=== PATIENT | male | born 1940 | race Caucasian/White ===

== ENCOUNTER 2020-06-22 22:44 | Inpatient (IN) | payer MEDICARE, OTHER ==
[~2020-06-22] VITALS: Ht 172.7 cm; Wt 104.8 kg
[2020-06-22 23:01] LABS: BASOPHILS # (AUTO) 0.1 /CMM (0.0-0.2); BASOPHILS % (AUTO) 1.2 % (0.0-2.0); EOSINOPHILS % (AUTO) 5.9 % (0.0-6.0); HEMATOCRIT 35 % (39-51); HEMOGLOBIN 11.6 g/dL (13.5-17.5); LYMPHOCYTES # (AUTO) 1.8 /CMM (0.8-4.8); LYMPHOCYTES % (AUTO) 29.3 % (20.0-44.0); MEAN CORPUSCULAR HGB CONC 33 g/dl (31.0-36.0); MEAN CORPUSCULAR VOLUME 88 fL (80-96); MONOCYTES # (AUTO) 0.6 /CMM (0.1-1.30); MONOCYTES % (AUTO) 10.3 % (2.0-12.0); NEUTROPHILS # (AUTO) 3.2 /CMM (1.8-8.9); NEUTROPHILS % (AUTO) 53.3 % (43.0-81.0); PLATELET COUNT (AUTO) 228 /CMM (150-450); RED BLOOD CELL COUNT(AUTO) 3.98 MIL/uL (4.5-6.0)
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
--- NOTE | 2020-06-22 23:18 | NUR ---
PT IS UNABLE TO URINATE AT THIS TIME. OFFERED CATHETERIZATION BUT HE REFUSED. AWARE. WILL COLEECT WHEN THE URGE COMES
[2020-06-22 23:24] LABS: CALCIUM, SERUM 7.8 mg/dL (8.5-10.1); CARBON DIOXIDE 25 mmol/L (21-32); CHLORIDE 101 mmol/L (98-107); CREATININE 1.3 mg/dL (0.6-1.3); GLUCOSE 249 mg/dL (74-106); POTASSIUM 4.2 mmol/L (3.5-5.1); SODIUM SERUM 135 mmol/L (136-145); UREA NITROGEN, BLOOD 16 mg/dL (7-18)
--- NOTE | 2020-06-22 23:24 | NUR ---
URINE COLLECTED AND SENT TO LAB
[2020-06-22 23:31] LABS: ALANINE AMINOTRANSFERASE 21 U/L (12-78); ALBUMIN 2.6 g/dL (3.4-5.0); ALKALINE PHOSPHATASE 139 U/L (46-116); ASPARTATE AMINOTRANSFERASE 11 U/L (15-37); BILIRUBIN,DIRECT 0.1 mg/dL (0.0-0.2); BILIRUBIN,TOTAL 0.2 mg/dL (0.2-1.0)
[2020-06-22 23:34] LABS: ACETAMINOPHEN 0 ug/ml (10-30)
[2020-06-22 23:35] LABS: ALCOHOL, BLOOD < 3 mg/dL (0-0)
[2020-06-22 23:42] LABS: BILIRUBIN,URINE NEGATIVE (NEGATIVE); COLOR,URINE YELLOW (YELLOW); LEUKOCYTE ESTERASE ,URINE TRACE (NEGATIVE); NITRITE, URINE NEGATIVE (NEGATIVE); PH,URINE 5.5 (5.0-8.0); PROTEIN,URINE NEGATIVE (NEGATIVE); UGLUCOSE 100 MG/DL mg/dL (NEGATIVE); UROBILINOGEN,URINE 0.2 EU/dL (0.2)
[2020-06-22 23:56] LABS: BACTERIA,URINE 1+ /HPF (None Seen); MUCUS,URINE Few /LPF (None Seen); RBC,URINE 0-2 /HPF (0-2); SQUAMOUS EPITHELIAL CELL,UR Few /HPF (None Seen); URINE AMORPHOUS URATE Few /HPF (None Seen)
--- NOTE | 2020-06-23 00:10 | NUR ---
CALL FROM LAB. RAPID COVID NEGATIVE.
--- NOTE | 2020-06-23 04:18 | NUR ---
REPORT GIVEN TO DOROTHEA MARTINI FOR MICHELLE
--- NOTE | 2020-06-23 04:20 | NUR ---
Pt to gps via [facility].
[2020-06-23] MEDS ORDERED: ZOLP5TAB2 PO (04:23)
[2020-06-23] MEDS ORDERED: [UNRECOGNIZED DRUG - OTHER] (04:25)
[2020-06-23] MEDS ORDERED: ASPI-1169 PO (04:28)
--- NOTE | 2020-06-23 04:34 | NUR ---
GPS ADMISSION NOTE, RECEIVED PATIENT FROM [facility] PATIENT ARRIVED ON THIS UNIT AT 0434 VIA STRETCHER WITH 2 ESCORTS. PATIENT ADMITTED ON A 5150 HOLD FOR DTO AND GD. PER HOLD PATIENT HAS BEEN BEING INCREASINGLY AGGRESSIVE AND COMBATIVE TOWARDS STAFF AND RESIDENTS. PATIENT IS REFUSING MEALS AND MEDICATION. PATIENT HAS NO PLAN FOR SELF CARE. PATIENT WAS UNABLE TO CONTRACT FOR SAFETY AT THAT TIME.THE 5150 WAS REVIEWED AND THE DOCUMENTATION IN THE 5150 HOLD APPEARS TO REFLECT THE PRESENTATION OF THE PATIENT. UPON FACE TO FACE ASSESSMENT PATIENT IS NOTED TO BEING DEPRESSED, DISHEVELED, DISORGANIZED, COOPERATIVE, AND NEEDS REDIRECTION. PATIENT IS CURRENTLY LYING IN BED AWAKE, HAS NO S/S OR COMPLAINTS OF PAIN. PATIENT IS DISPLAYING NO S/S OF APPARENT DISTRESS. PATIENT BREATHING IS UNLABORED WITH EQUAL RISE AND FALL OF THE CHEST. PATIENT IS ALERT AND ORIENTATED X 3 ON ROOM AIR. PATIENT ASSISTED WITH TURING AND REPOSITIONING Q2HR AND PRN FOR COMFORT AND CIRCULATION. PATIENT HAS NO NEEDS AT THIS TIME. PATIENT DENIES SUICIDE IDEATIONS AND HOMICIDAL IDEATIONS AT THIS TIME. PATIENT REFUSED TO SIGNS ANY PAPER WORK AND THINKS THIS IS ALL A MISTAKE. PATIENT ADVISED OF HIS HOLD AND PATIENT RIGHTS BOOKLET GIVEN. PATIENT IS UNDER THE PSYCHIATRIC CARE OF DR. BLEDSOE AND THE MEDICAL CARE OF DR SNOW. PATIENT BELONGINGS WERE INVENTORIED AND CHECKED FOR CONTRABAND. ALL CONTRABAND REMOVED AND STORED IN PATIENT HALLWAY LOCKER. PATIENT ADVANCED DIRECTIVES PREFERENCE, IMMUNIZATIONS QUESTIONER, NECESSARY PAPERWORK COMPLETED. PATIENT ALLOWED SKIN ASSESSMENT. PATIENT ORIENTATED TO ROOM, FLOOR, AND STAFF WITH ALL QUESTIONS ANSWERED. PATIENT EDUCATED ON THE USE OF THE CALL CARR. PATIENT BED SIDE RAILS ARE UP X 2 FOR SAFETY. PATIENT BED IS LOCKED, LOW AND I WILL CONTINUE TO MONITOR THIS PATIENT Q 15 MIN WITH THE HELP OF STAFF TO MAINTAIN SAFETY.
[2020-06-23] MEDS ORDERED: MAGNESIUM HYDROXIDE 30 ML UDC PO PRN (05:00)
[2020-06-23] MEDS ORDERED: MAG HYDROX/AL HYDROX/SIMETH 30 ML UDC PO PRN (05:00)
[2020-06-23] MEDS ORDERED: ZOLPIDEM TARTRATE 5 MG TABLET PO PRN (05:00)
[2020-06-23] MEDS ORDERED: ACETAMINOPHEN 325 MG TABLET PO PRN (05:00)
[2020-06-23] MEDS ORDERED: BLOOD SUGAR DIAGNOSTIC 1 EACH STRIP IN ONE (05:00)
[2020-06-23] MEDS ORDERED: DOCU100C36 PO (05:02)
[2020-06-23] MEDS ORDERED: TAMS-12 PO (05:03)
[2020-06-23] MEDS ORDERED: GLIP5TAB13 PO (05:04)
[2020-06-23] MEDS ORDERED: INSU100V3 SQ (05:05)
[2020-06-23] MEDS ORDERED: POTA20TA83 PO (05:06)
[2020-06-23] MEDS ORDERED: FURO-145 PO (05:08)
[2020-06-23] MEDS ORDERED: INSU100V7 SQ (05:08)
[2020-06-23] MEDS ORDERED: ATOR10TA PO (05:09)
[2020-06-23] MEDS ORDERED: LISI-768 PO (05:10)
[2020-06-23] MEDS ORDERED: ENOX40DI SQ (05:11)
[2020-06-23] MEDS ORDERED: METO25TA20 PO (05:11)
[2020-06-23] MEDS ORDERED: MULT-754 PO (05:12)
[2020-06-23] MEDS ORDERED: HYDR-4303 PO (05:13)
[2020-06-23] MEDS ORDERED: CLOP75TA15 PO (05:14)
[2020-06-23] MEDS ORDERED: RISP1TAB7 PO (05:15)
[2020-06-23] MEDS ORDERED: TRAZ-182 PO (05:16)
[2020-06-23] MEDS ORDERED: OXCA150T5 PO (05:17)
[2020-06-23 06:27] VITALS: BP 109/54
--- NOTE | 2020-06-23 06:28 | NUR ---
RECEIVED ALERT AND ORIENTED X3 SOFT SPOKEN WILL SMILE WILL GIVE EYE CONTACT APPEARS DEPRESSED / SAD NO BELONGINGS EXCEPT JACKET AND HIS UPPER AND LOWER DENTURES FROM THE ER HE WAS INCONTINENT FROM [place] TO BED UNSTEADY GAIT RESP EVEN AND UNLABORED ON ROOM AIT REASSURED PT THAT NURSE MAKES ROUNDS Q15 - 30 MINUTES TO CHECK ON HIM SIDE RAILS UP FOR SAFETY
[2020-06-23] MEDS ORDERED: DEXTROSE 50%-WATER 50 ML DISP.SYRIN IV PRN ×2 (07:00→12:30)
[2020-06-23] MEDS ORDERED: INSULIN REGULAR, HUMAN 100 UNIT/ML 3 ML VIAL SQ PRN (07:00)
[2020-06-23 08:00] VITALS: BP 128/65
[2020-06-23] MEDS: BLOOD SUGAR DIAGNOSTIC 1 EACH STRIP IN SCH ×2 (08:09→12:03)
[2020-06-23] MEDS: INSULIN REGULAR, HUMAN 100 UNIT/ML 3 ML VIAL SQ PRN ×2 (12:38→18:22)
[2020-06-23] MEDS: LORAZEPAM 1 MG TABLET PO PRN (13:16)
--- NOTE | 2020-06-23 13:21 | NUR ---
given ativan for agitation.
[2020-06-23] MEDS: ENOXAPARIN SODIUM 40 MG/0.4 ML DISP.SYRIN SQ SCH (14:49)
[2020-06-23 16:00] VITALS: BP 157/74
--- NOTE | 2020-06-23 16:32 | NUR ---
insisting on family being called.rn called [facility]. requesting clothes be brought in. is located 2 hrs away and will not be bringing clothes today. instructed what type of clothes allowed and to bring them to front lobby.
[2020-06-23] MEDS: BLOOD SUGAR DIAGNOSTIC 1 EACH STRIP VI SCH ×2 (18:02→22:27)
[2020-06-23] MEDS: risperiDONE 1 MG TABLET PO SCH (18:02)
[2020-06-23] MEDS: OXCARBAZEPINE 150 MG TABLET PO SCH (18:03)
[2020-06-23 20:08] VITALS: BP 125/56
[2020-06-23 20:21] VITALS: BP 125/56
[2020-06-23] MEDS: METOPROLOL TARTRATE 50 MG TABLET PO SCH (21:00)
[2020-06-23] MEDS: CEPHALEXIN MONOHYDRATE 500 MG CAPSULE PO SCH (21:08)
[2020-06-23] MEDS: TAMSULOSIN 0.4 MG CAP.SR.24H PO SCH (21:31)
[2020-06-23] MEDS: TRAZODONE 50 MG TABLET PO SCH (21:31)
[2020-06-23] MEDS: ATORVASTATIN 10 MG TABLET PO SCH (21:31)
--- NOTE | 2020-06-23 21:49 | NUR ---
RN NOTE: HELD LOPRESSOR PATIENT'S BP IS 119/58, 62, HELD LOPRESSOR 50 MG PO SCHEDULED. PATIENT AMBULATORY WITH STAND BY ASSIST TO PREVENT FALL. PT. USED THE BATHROOM WITH STAND BY ASSIST, WILL CONTINUE TO MONITOR FOR ANY MICHELLE.
[2020-06-23] MEDS: *INSULIN REGULAR(HUMULIN R)HUM 100 UNIT/ML VIAL SQ PRN (22:48)
[2020-06-24 06:26] LABS: CALCIUM, SERUM 8.5 mg/dL (8.5-10.1); CREATININE 0.9 mg/dL (0.6-1.3)
[2020-06-24 06:28] LABS: BASOPHILS # (AUTO) 0.1 /CMM (0.0-0.2); BASOPHILS % (AUTO) 1.3 % (0.0-2.0); EOSINOPHILS % (AUTO) 7.7 % (0.0-6.0); HEMATOCRIT 38 % (39-51); HEMOGLOBIN 12.8 g/dL (13.5-17.5); LYMPHOCYTES # (AUTO) 1.3 /CMM (0.8-4.8); LYMPHOCYTES % (AUTO) 27.4 % (20.0-44.0); MEAN CORPUSCULAR HGB CONC 33 g/dl (31.0-36.0); MEAN CORPUSCULAR VOLUME 86 fL (80-96); MONOCYTES # (AUTO) 0.5 /CMM (0.1-1.30); MONOCYTES % (AUTO) 10.5 % (2.0-12.0); NEUTROPHILS # (AUTO) 2.5 /CMM (1.8-8.9); NEUTROPHILS % (AUTO) 53.1 % (43.0-81.0); PLATELET COUNT (AUTO) 230 /CMM (150-450); RED BLOOD CELL COUNT(AUTO) 4.49 MIL/uL (4.5-6.0); WHITE BLOOD COUNT (AUTO) 4.7 K/uL (4.3-11.0)
[2020-06-24 08:00] VITALS: BP 135/58
[2020-06-24] MEDS ORDERED: PETR113O TP (08:59)
[2020-06-24] MEDS ORDERED: ACET-868 PO (08:59)
[2020-06-24] MEDS ORDERED: DIPH14SO3 TP (08:59)
[2020-06-24] MEDS ORDERED: NYST15PO4 TP (08:59)
[2020-06-24] MEDS ORDERED: BISA10SU11 RC (08:59)
[2020-06-24] MEDS ORDERED: PSYL3.4P6 PO (08:59)
[2020-06-24] MEDS ORDERED: MAGN400O6 PO (08:59)
[2020-06-24] MEDS ORDERED: MAG30ORA PO (08:59)
[2020-06-24] MEDS ORDERED: ONDA4TAB5 PO (08:59)
[2020-06-24] MEDS ORDERED: NA P133E RC (08:59)
[2020-06-24] MEDS ORDERED: INSULIN GLARGINE, 100 UNIT/ML CARTRIDGE SQ SCH ×2 (09:00)
[2020-06-24] MEDS: FUROSEMIDE 20 MG TABLET PO SCH (09:19)
[2020-06-24] MEDS: POTASSIUM CHLORIDE 20 MEQ TAB.PRT.SR PO SCH (09:19)
[2020-06-24] MEDS: risperiDONE 1 MG TABLET PO SCH ×2 (09:19→17:32)
[2020-06-24] MEDS: OXCARBAZEPINE 150 MG TABLET PO SCH ×3 (09:19→17:32)
[2020-06-24] MEDS: CEPHALEXIN MONOHYDRATE 500 MG CAPSULE PO SCH ×2 (09:19→20:34)
[2020-06-24] MEDS: CLOPIDOGREL BISULFATE 75 MG TABLET PO SCH (09:19)
[2020-06-24] MEDS: ASPIRIN 81 MG TAB.CHEW PO SCH (09:20)
[2020-06-24] MEDS: METOPROLOL TARTRATE 50 MG TABLET PO SCH ×2 (09:20→21:03)
[2020-06-24] MEDS: LISINOPRIL (5MG) 5 MG TABLET PO SCH (09:20)
[2020-06-24] MEDS: MULTIVITAMINS,THERAGRAN 1 UDTAB TABLET PO SCH (09:20)
[2020-06-24] MEDS: BLOOD SUGAR DIAGNOSTIC 1 EACH STRIP VI SCH ×4 (09:21→21:35)
[2020-06-24] MEDS: DOCUSATE SODIUM 100 MG CAPSULE PO SCH (09:21)
[2020-06-24] MEDS: glipiZIDE 5 MG TABLET PO SCH (09:21)
[2020-06-24] MEDS: INSULIN REGULAR, HUMAN 100 UNIT/ML 3 ML VIAL SQ PRN ×2 (09:24→12:38)
[2020-06-24] MEDS: ENOXAPARIN SODIUM 40 MG/0.4 ML DISP.SYRIN SQ SCH (09:25)
[2020-06-24 16:00] VITALS: BP 135/67
[2020-06-24 20:00] VITALS: BP 129/75
[2020-06-24 20:20] VITALS: BP 129/75
[2020-06-24] MEDS: TAMSULOSIN 0.4 MG CAP.SR.24H PO SCH (21:34)
[2020-06-24] MEDS: TRAZODONE 50 MG TABLET PO SCH (21:34)
[2020-06-24] MEDS: ATORVASTATIN 10 MG TABLET PO SCH (21:34)
[2020-06-24] MEDS: *INSULIN REGULAR(HUMULIN R)HUM 100 UNIT/ML VIAL SQ PRN (21:46)
--- NOTE | 2020-06-25 06:42 | NUR ---
RN NOTE PATIENT SLEPT WELL THROUGH OUT THE NIGHT. WILL CONTINUE TO MONITOR.
[2020-06-25 08:00] VITALS: BP 129/78
[2020-06-25] MEDS: ASPIRIN 81 MG TAB.CHEW PO SCH (08:53)
[2020-06-25] MEDS: POTASSIUM CHLORIDE 20 MEQ TAB.PRT.SR PO SCH (08:53)
[2020-06-25] MEDS: CEPHALEXIN MONOHYDRATE 500 MG CAPSULE PO SCH ×2 (08:53→22:30)
[2020-06-25] MEDS: BLOOD SUGAR DIAGNOSTIC 1 EACH STRIP VI SCH ×4 (08:53→22:31)
[2020-06-25] MEDS: FUROSEMIDE 20 MG TABLET PO SCH (08:54)
[2020-06-25] MEDS: CLOPIDOGREL BISULFATE 75 MG TABLET PO SCH (08:54)
[2020-06-25] MEDS: DOCUSATE SODIUM 100 MG CAPSULE PO SCH (08:54)
[2020-06-25] MEDS: glipiZIDE 5 MG TABLET PO SCH (08:54)
[2020-06-25] MEDS: LISINOPRIL (5MG) 5 MG TABLET PO SCH (08:54)
[2020-06-25] MEDS: risperiDONE 1 MG TABLET PO SCH ×2 (08:55→16:49)
[2020-06-25] MEDS: METOPROLOL TARTRATE 50 MG TABLET PO SCH ×2 (08:55→22:31)
[2020-06-25] MEDS: OXCARBAZEPINE 150 MG TABLET PO SCH ×3 (09:00→16:50)
[2020-06-25] MEDS: MULTIVITAMINS,THERAGRAN 1 UDTAB TABLET PO SCH (09:00)
[2020-06-25] MEDS: INSULIN GLARGINE, 100 UNIT/ML CARTRIDGE SQ SCH (09:03)
[2020-06-25] MEDS: ENOXAPARIN SODIUM 40 MG/0.4 ML DISP.SYRIN SQ SCH (09:07)
[2020-06-25] MEDS: MUPIROCIN OINT 2% 22 GM TUBE NS SCH ×2 (09:08→22:39)
--- NOTE | 2020-06-25 11:07 | NUR ---
WOUND CARE CONSULT: PT SEEN FOR SKIN ASSESSMENT AND NOTED TO HAVE RASH TO GROIN FOLDS/PERINEAL AREA, CRUSTED AREAS TO RT LOWER LEG AND PEELING SKIN TO RT HEEL, ALL PRESENT ON ADMISSION. RECOMMEND DPM CONSULT. DR BETHEA NOTIFIED OF CONSULT REQUEST. RECOMMENDATIONS MADE FOR SKIN PROTECTION. DISCUSSED WITH NURSING STAFF. MD IN AGREEMENT WITH PLAN OF CARE.
[2020-06-25] MEDS ORDERED: Z GUARD REMEDY 2 OZ OINT TP PRN (11:30)
[2020-06-25] MEDS: INSULIN REGULAR, HUMAN 100 UNIT/ML 3 ML VIAL SQ PRN (12:33)
[2020-06-25] MEDS: Z GUARD REMEDY 2 OZ OINT TP SCH (12:37)
[2020-06-25 16:00] VITALS: BP 125/66
[2020-06-25] MEDS: CLOTRIMAZOLE 1% 15 GM TUBE TP SCH (16:49)
[2020-06-25] MEDS: AMMONIUM LACTATE 227 GM BOTTLE TP SCH (19:12)
[2020-06-25 20:00] VITALS: BP 125/64
--- NOTE | 2020-06-25 20:00 | NUR ---
[facility]PS RN NOTE: RECEIVED PT AMBULATING HALLWAY AND RESTING IN BED, A&O X 2, CONFUSED & FORGETFUL, DISORGANIZED, NEEDS REDIRECTIONS FREQUENTLY. DENIES SI/HI AT THIS TIME. NO ACUTE DISTRESS NOTED, NO C/O PAIN VERBALZIZED. SAFETY MEASURS IN PLACE. FALL RISK PT CURRENTLY AMBULATING WITH SLOW STEADY GAIT. BED IN LOW LOCKED POSITION. WILL CONTINUE TO MONITOR. Q 15 MINUTES FOR SAFETY, MOOD AND BEHAVIOR.
[2020-06-25] MEDS: *INSULIN REGULAR(HUMULIN R)HUM 100 UNIT/ML VIAL SQ PRN (22:27)
[2020-06-25] MEDS: ATORVASTATIN 10 MG TABLET PO SCH (22:30)
[2020-06-25] MEDS: TRAZODONE 50 MG TABLET PO SCH (22:30)
[2020-06-25] MEDS: TAMSULOSIN 0.4 MG CAP.SR.24H PO SCH (22:30)
[2020-06-26 08:00] VITALS: BP 111/59
--- NOTE | 2020-06-26 08:45 | NUR ---
BP-111/59, p-65, will hold bp med.
[2020-06-26] MEDS: BLOOD SUGAR DIAGNOSTIC 1 EACH STRIP VI SCH ×4 (08:47→21:28)
[2020-06-26] MEDS: MUPIROCIN OINT 2% 22 GM TUBE NS SCH ×2 (08:48→21:13)
[2020-06-26] MEDS: AMMONIUM LACTATE 227 GM BOTTLE TP SCH ×2 (08:48→17:43)
[2020-06-26] MEDS: CEPHALEXIN MONOHYDRATE 500 MG CAPSULE PO SCH ×2 (08:49→21:09)
[2020-06-26] MEDS: glipiZIDE 5 MG TABLET PO SCH (08:49)
[2020-06-26] MEDS: ASPIRIN 81 MG TAB.CHEW PO SCH (08:49)
[2020-06-26] MEDS: DOCUSATE SODIUM 100 MG CAPSULE PO SCH (08:49)
[2020-06-26] MEDS: MULTIVITAMINS,THERAGRAN 1 UDTAB TABLET PO SCH (08:49)
[2020-06-26] MEDS: OXCARBAZEPINE 150 MG TABLET PO SCH ×3 (08:49→17:43)
[2020-06-26] MEDS: METOPROLOL TARTRATE 50 MG TABLET PO SCH ×2 (08:50→21:09)
[2020-06-26] MEDS: risperiDONE 1 MG TABLET PO SCH ×2 (08:50→17:43)
[2020-06-26] MEDS: POTASSIUM CHLORIDE 20 MEQ TAB.PRT.SR PO SCH (08:50)
[2020-06-26] MEDS: CLOPIDOGREL BISULFATE 75 MG TABLET PO SCH (08:50)
[2020-06-26] MEDS: FUROSEMIDE 20 MG TABLET PO SCH (08:50)
[2020-06-26] MEDS: LISINOPRIL (5MG) 5 MG TABLET PO SCH (08:50)
[2020-06-26] MEDS: CLOTRIMAZOLE 1% 15 GM TUBE TP SCH ×2 (08:51→17:44)
[2020-06-26] MEDS: INSULIN GLARGINE, 100 UNIT/ML CARTRIDGE SQ SCH (08:56)
[2020-06-26] MEDS: ENOXAPARIN SODIUM 40 MG/0.4 ML DISP.SYRIN SQ SCH (08:57)
[2020-06-26] MEDS: Z GUARD REMEDY 2 OZ OINT TP SCH (09:05)
--- NOTE | 2020-06-26 11:54 | NUR ---
SNF Contact: BABATUNDE contacted Chiara ([phone]) from [facility] who stated that she will speak to the DON about whether or not the pt will be accepted back.
--- NOTE | 2020-06-26 11:58 | NUR ---
Family Contact: BABATUNDE called the pts , Ethel ([phone]), who stated that she wants the pt to return to [facility] because they are equipped to manage dementia. She then stated that the pt would need to get his vaccine so that he does not have to be isolated when he first arrives at the SNF. SW stated that he would need to get the vaccine from the SNF. BABATUNDE stated that she will keep her updated on pts treatment.
[2020-06-26] MEDS: INSULIN REGULAR, HUMAN 100 UNIT/ML 3 ML VIAL SQ PRN (12:33)
--- NOTE | 2020-06-26 15:40 | NUR ---
Initial Discharge Plan: Pt currently resides at [facility] located at [address] [place] [id number]; ([phone]). Per pt, he would like to return home. Per Chiara at the facility, pt can return. BABATUNDE will work with the pt and the MD regarding appropriate discharge planning. SW will form a safe and proper plan.
[2020-06-26 16:00] VITALS: BP 123/54
[2020-06-26 20:17] VITALS: BP 131/97
[2020-06-26 20:53] VITALS: BP 131/97
[2020-06-26] MEDS: ATORVASTATIN 10 MG TABLET PO SCH (21:28)
[2020-06-26] MEDS: TAMSULOSIN 0.4 MG CAP.SR.24H PO SCH (21:28)
[2020-06-26] MEDS: TRAZODONE 50 MG TABLET PO SCH (21:37)
[2020-06-26] MEDS: *INSULIN REGULAR(HUMULIN R)HUM 100 UNIT/ML VIAL SQ PRN (22:19)
[2020-06-27] MEDS: LORAZEPAM 1 MG TABLET PO PRN (04:39)
--- NOTE | 2020-06-27 04:43 | NUR ---
RN NOTE: ANXIETY PATIENT NOTED TO BE ANXIOUS, RESTLESS & EASILY AGITATED, KEEPS REPEATING SAME STATEMENT DESPITE OF EXPLANATIONS. PRN ATIVAN 1 MG PO ADMINISTERED. WILL CONTINUE TO MONITOR FOR ANY CHANGES.
[2020-06-27] MEDS: BLOOD SUGAR DIAGNOSTIC 1 EACH STRIP VI SCH ×4 (07:44→21:41)
[2020-06-27 08:00] VITALS: BP 162/76
[2020-06-27] MEDS: INSULIN REGULAR, HUMAN 100 UNIT/ML 3 ML VIAL SQ PRN ×2 (08:00→12:08)
[2020-06-27] MEDS: LISINOPRIL (5MG) 5 MG TABLET PO SCH (08:52)
[2020-06-27] MEDS: ENOXAPARIN SODIUM 40 MG/0.4 ML DISP.SYRIN SQ SCH (08:54)
[2020-06-27] MEDS: POTASSIUM CHLORIDE 20 MEQ TAB.PRT.SR PO SCH (08:54)
[2020-06-27] MEDS: MULTIVITAMINS,THERAGRAN 1 UDTAB TABLET PO SCH (08:54)
[2020-06-27] MEDS: glipiZIDE 5 MG TABLET PO SCH (08:54)
[2020-06-27] MEDS: ASPIRIN 81 MG TAB.CHEW PO SCH (08:54)
[2020-06-27] MEDS: DOCUSATE SODIUM 100 MG CAPSULE PO SCH (08:54)
[2020-06-27] MEDS: risperiDONE 1 MG TABLET PO SCH ×2 (08:55→16:29)
[2020-06-27] MEDS: FUROSEMIDE 20 MG TABLET PO SCH (08:55)
[2020-06-27] MEDS: METOPROLOL TARTRATE 50 MG TABLET PO SCH ×2 (08:55→21:41)
[2020-06-27] MEDS: OXCARBAZEPINE 150 MG TABLET PO SCH ×3 (08:55→16:29)
[2020-06-27] MEDS: CLOPIDOGREL BISULFATE 75 MG TABLET PO SCH (08:55)
[2020-06-27] MEDS: CEPHALEXIN MONOHYDRATE 500 MG CAPSULE PO SCH ×2 (08:55→21:40)
[2020-06-27] MEDS: INSULIN GLARGINE, 100 UNIT/ML CARTRIDGE SQ SCH (09:06)
[2020-06-27] MEDS: MUPIROCIN OINT 2% 22 GM TUBE NS SCH ×2 (09:42→21:45)
[2020-06-27] MEDS: Z GUARD REMEDY 2 OZ OINT TP SCH (09:42)
[2020-06-27] MEDS: AMMONIUM LACTATE 227 GM BOTTLE TP SCH ×2 (09:42→16:35)
[2020-06-27] MEDS: CLOTRIMAZOLE 1% 15 GM TUBE TP SCH ×2 (09:43→16:35)
[2020-06-27 16:00] VITALS: BP 141/73
[2020-06-27 20:02] VITALS: BP 108/51
[2020-06-27] MEDS: ATORVASTATIN 10 MG TABLET PO SCH (21:40)
[2020-06-27] MEDS: TAMSULOSIN 0.4 MG CAP.SR.24H PO SCH (21:40)
[2020-06-27] MEDS: TRAZODONE 50 MG TABLET PO SCH (21:40)
--- NOTE | 2020-06-27 22:00 | NUR ---
BUS GREASER NOTES ROUTINE MEDS GIVEN AND BLOOD SUGAR CHECKED DONE WELL 200, INSULIN GIVEN 3 UNITS DIAMOND SQ ORDERED. NO SIGNS OF HYPO/HYPER GLYCEMIA NOTED. SNACKS ALSO SERVED. PT TOLERATED WELL. WILL CONTINUE MONITORING.
[2020-06-27] MEDS: *INSULIN REGULAR(HUMULIN R)HUM 100 UNIT/ML VIAL SQ PRN (22:29)
--- NOTE | 2020-06-28 06:53 | NUR ---
river pilot notes pt sleeping at this time after morning care done. Stable throughout the night . He's calmed , cooperative and compliance with his medication.He also ate well, no aspiration noted. No behavioral issue to report at this time. All due meds given and all needs met. Kept him warm and comfortable at all times. Blood sugar checked done for 07 am came out 200. endorse to am nurse for continuity of care.
[2020-06-28] MEDS: BLOOD SUGAR DIAGNOSTIC 1 EACH STRIP VI SCH ×4 (07:54→22:25)
[2020-06-28 08:00] VITALS: BP 118/67
[2020-06-28] MEDS: FUROSEMIDE 20 MG TABLET PO SCH (08:21)
[2020-06-28] MEDS: CEPHALEXIN MONOHYDRATE 500 MG CAPSULE PO SCH (08:21)
[2020-06-28] MEDS: ASPIRIN 81 MG TAB.CHEW PO SCH (08:21)
[2020-06-28] MEDS: LISINOPRIL (5MG) 5 MG TABLET PO SCH (08:21)
[2020-06-28] MEDS: glipiZIDE 5 MG TABLET PO SCH (08:21)
[2020-06-28] MEDS: CLOPIDOGREL BISULFATE 75 MG TABLET PO SCH (08:21)
[2020-06-28] MEDS: OXCARBAZEPINE 150 MG TABLET PO SCH ×3 (08:21→17:26)
[2020-06-28] MEDS: POTASSIUM CHLORIDE 20 MEQ TAB.PRT.SR PO SCH (08:21)
[2020-06-28] MEDS: DOCUSATE SODIUM 100 MG CAPSULE PO SCH (08:21)
[2020-06-28] MEDS: MULTIVITAMINS,THERAGRAN 1 UDTAB TABLET PO SCH (08:21)
[2020-06-28] MEDS: risperiDONE 1 MG TABLET PO SCH ×2 (08:21→17:26)
[2020-06-28] MEDS: METOPROLOL TARTRATE 50 MG TABLET PO SCH ×2 (08:22→21:00)
[2020-06-28] MEDS: CLOTRIMAZOLE 1% 15 GM TUBE TP SCH ×2 (08:26→17:30)
[2020-06-28] MEDS: Z GUARD REMEDY 2 OZ OINT TP SCH (08:26)
[2020-06-28] MEDS: AMMONIUM LACTATE 227 GM BOTTLE TP SCH ×2 (08:27→17:29)
[2020-06-28] MEDS: MUPIROCIN OINT 2% 22 GM TUBE NS SCH ×2 (08:30→21:31)
[2020-06-28] MEDS: INSULIN GLARGINE, 100 UNIT/ML CARTRIDGE SQ SCH (08:34)
[2020-06-28] MEDS: ENOXAPARIN SODIUM 40 MG/0.4 ML DISP.SYRIN SQ SCH (08:35)
[2020-06-28] MEDS: INSULIN REGULAR, HUMAN 100 UNIT/ML 3 ML VIAL SQ PRN ×2 (08:36→12:45)
--- NOTE | 2020-06-28 14:00 | NUR ---
SNF Contact: BABATUNDE contacted Chiara ([phone]) from [facility] and informed her that the pt will be discharged back to their facility tomorrow.
--- NOTE | 2020-06-28 14:00 | NUR ---
Family Contact: BABATUNDE called the pts , Ethel ([phone]), and informed her that the pt is going to be discharged back to [facility] the following day.
[2020-06-28 16:00] VITALS: BP 119/53
[2020-06-28 20:23] VITALS: BP 130/71
[2020-06-28] MEDS: *INSULIN REGULAR(HUMULIN R)HUM 100 UNIT/ML VIAL SQ PRN (21:29)
[2020-06-28] MEDS: ATORVASTATIN 10 MG TABLET PO SCH (21:30)
[2020-06-28] MEDS: TAMSULOSIN 0.4 MG CAP.SR.24H PO SCH (21:30)
[2020-06-28] MEDS: TRAZODONE 50 MG TABLET PO SCH (21:31)
[2020-06-29] MEDS: BLOOD SUGAR DIAGNOSTIC 1 EACH STRIP VI SCH ×4 (07:43→22:13)
[2020-06-29] MEDS: INSULIN REGULAR, HUMAN 100 UNIT/ML 3 ML VIAL SQ PRN (07:50)
[2020-06-29 08:00] VITALS: BP 150/66
[2020-06-29] MEDS: OXCARBAZEPINE 150 MG TABLET PO SCH ×3 (08:22→16:14)
[2020-06-29] MEDS: DOCUSATE SODIUM 100 MG CAPSULE PO SCH (08:22)
[2020-06-29] MEDS: CLOPIDOGREL BISULFATE 75 MG TABLET PO SCH (08:22)
[2020-06-29] MEDS: risperiDONE 1 MG TABLET PO SCH ×2 (08:22→16:14)
[2020-06-29] MEDS: FUROSEMIDE 20 MG TABLET PO SCH (08:22)
[2020-06-29] MEDS: ASPIRIN 81 MG TAB.CHEW PO SCH (08:22)
[2020-06-29] MEDS: POTASSIUM CHLORIDE 20 MEQ TAB.PRT.SR PO SCH (08:22)
[2020-06-29] MEDS: glipiZIDE 5 MG TABLET PO SCH (08:22)
[2020-06-29] MEDS: LISINOPRIL (5MG) 5 MG TABLET PO SCH (08:23)
[2020-06-29] MEDS: METOPROLOL TARTRATE 50 MG TABLET PO SCH ×2 (08:23→20:40)
[2020-06-29] MEDS: MULTIVITAMINS,THERAGRAN 1 UDTAB TABLET PO SCH (08:23)
[2020-06-29] MEDS: ENOXAPARIN SODIUM 40 MG/0.4 ML DISP.SYRIN SQ SCH (08:25)
[2020-06-29] MEDS: INSULIN GLARGINE, 100 UNIT/ML CARTRIDGE SQ SCH (08:30)
[2020-06-29] MEDS: AMMONIUM LACTATE 227 GM BOTTLE TP SCH ×2 (08:33→17:05)
[2020-06-29] MEDS: CLOTRIMAZOLE 1% 15 GM TUBE TP SCH ×2 (08:34→17:05)
[2020-06-29] MEDS: Z GUARD REMEDY 2 OZ OINT TP SCH (08:34)
[2020-06-29] MEDS: MUPIROCIN OINT 2% 22 GM TUBE NS SCH ×2 (08:34→20:36)
--- NOTE | 2020-06-29 09:00 | NUR ---
RN NOTE- PT WANTS TO DC, FOCUS ON IT. REPEATED QUESTIONS REGARDING TIME OF DC ETC. REDIRECTED, MED COMPLIANT PO INTAKE GOOD, CALM
--- NOTE | 2020-06-29 09:04 | NUR ---
Dr. Christensen gave an order to D/C hold and D/C to [facility], to continue same meds including and to follow up with psych and medical doctors.
--- NOTE | 2020-06-29 09:21 | NUR ---
Discharge Note: Pt will be discharged to [facility] ([facility]) [place] [address] [place] [address]; ([phone]). Pt will be transported via [facility] at 12pm. Pts , Ethel ([phone]), agreed to this placement. Upon discharge, the pt appears to be in a dysphoric mood and presents with a distressed affect. Pt appears to be oriented x2 (time and self). Pt appears to be groomed and appropriately dressed. Pt appears to be ambulatory with an unsteady gait. Pt denies suicidal and homicidal ideation and denied visual and auditory hallucinations. Pt will continue to follow up with pts psychiatrist, Dr. Christensen, located at [address] [facility] [address] [address]; and pts silver miner blasting, Dr. An, located at [address] [place] [address], [address] [place] [address]; . Pt was not able to sign the Choice of Vendor form due to pts psychosis. RN and SW cosigned and the form was placed in the chart. The multidisciplinary exit care form was done, printed, signed, and given to the patient.
[2020-06-29] MEDS: *INSULIN REGULAR(HUMULIN R)HUM 100 UNIT/ML VIAL SQ PRN ×3 (12:06→22:15)
[2020-06-29] MEDS: LORAZEPAM 1 MG TABLET PO PRN (12:14)
--- NOTE | 2020-06-29 12:14 | NUR ---
RN NOTE- PT EXPERIENCING ANXIETY RESTLESSNESS RELATED TO DC - ATIVAN 1 MG GIVEN
--- NOTE | 2020-06-29 12:31 | NUR ---
Received an order from Dr. Christensen to cancel the discharge. Facility can not accept pt. until Thursday. Electro Tech made aware.
--- NOTE | 2020-06-29 13:01 | NUR ---
Family Contact: BABATUNDE called the pts , Ethel ([phone]), and informed her that the pt is going to be discharged on Thursday instead due to the facility's request.
--- NOTE | 2020-06-29 13:01 | NUR ---
DISCHARGE WAS CANCELLED.
[2020-06-29 16:00] VITALS: BP 119/57
[2020-06-29 20:21] VITALS: BP 127/67
[2020-06-29] MEDS: TRAZODONE 50 MG TABLET PO SCH (21:31)
[2020-06-29] MEDS: TAMSULOSIN 0.4 MG CAP.SR.24H PO SCH (21:32)
[2020-06-29] MEDS: ATORVASTATIN 10 MG TABLET PO SCH (21:34)
[2020-06-30] MEDS: BLOOD SUGAR DIAGNOSTIC 1 EACH STRIP VI SCH ×4 (07:29→21:46)
[2020-06-30 08:00] VITALS: BP 132/52
[2020-06-30] MEDS: ENOXAPARIN SODIUM 40 MG/0.4 ML DISP.SYRIN SQ SCH (08:47)
[2020-06-30] MEDS: DOCUSATE SODIUM 100 MG CAPSULE PO SCH (08:47)
[2020-06-30] MEDS: ASPIRIN 81 MG TAB.CHEW PO SCH (08:48)
[2020-06-30] MEDS: glipiZIDE 5 MG TABLET PO SCH (08:48)
[2020-06-30] MEDS: OXCARBAZEPINE 150 MG TABLET PO SCH ×3 (08:48→16:01)
[2020-06-30] MEDS: POTASSIUM CHLORIDE 20 MEQ TAB.PRT.SR PO SCH (08:48)
[2020-06-30] MEDS: METOPROLOL TARTRATE 50 MG TABLET PO SCH ×2 (08:48→21:00)
[2020-06-30] MEDS: CLOPIDOGREL BISULFATE 75 MG TABLET PO SCH (08:48)
[2020-06-30] MEDS: FUROSEMIDE 20 MG TABLET PO SCH (08:48)
[2020-06-30] MEDS: LISINOPRIL (5MG) 5 MG TABLET PO SCH (08:48)
[2020-06-30] MEDS: MULTIVITAMINS,THERAGRAN 1 UDTAB TABLET PO SCH (08:48)
[2020-06-30] MEDS: risperiDONE 1 MG TABLET PO SCH ×2 (08:48→16:01)
[2020-06-30] MEDS: INSULIN GLARGINE, 100 UNIT/ML CARTRIDGE SQ SCH (08:53)
[2020-06-30] MEDS: AMMONIUM LACTATE 227 GM BOTTLE TP SCH ×2 (08:57→16:01)
[2020-06-30] MEDS: CLOTRIMAZOLE 1% 15 GM TUBE TP SCH ×2 (08:58→16:02)
[2020-06-30] MEDS: MUPIROCIN OINT 2% 22 GM TUBE NS SCH ×2 (08:58→21:45)
[2020-06-30] MEDS: Z GUARD REMEDY 2 OZ OINT TP SCH (08:58)
--- NOTE | 2020-06-30 09:00 | NUR ---
RN NOTE- CONTINUED FOCUS ON DC, PACING TOVAR AT TIMES. REDIRECTED, MED COMPLIANT PO INTAKE GOOD, CALM
[2020-06-30] MEDS: INSULIN REGULAR, HUMAN 100 UNIT/ML 3 ML VIAL SQ PRN (11:48)
[2020-06-30 16:00] VITALS: BP 100/55
[2020-06-30] MEDS: *INSULIN REGULAR(HUMULIN R)HUM 100 UNIT/ML VIAL SQ PRN (17:31)
[2020-06-30 20:10] VITALS: BP 109/54
[2020-06-30 20:29] VITALS: BP 109/54
--- NOTE | 2020-06-30 21:39 | NUR ---
RN NOTE: HELD LOPRESSOR PATIENT'S BP IS 107/57, 64, HELD LOPRESSOR 50 MG PO SCHEDULED. PT. IS ASYMPTOMATIC AT THI TIME. WILL CONTINUE TO MONITOR FOR ANY MICHELLE.
[2020-06-30] MEDS: TAMSULOSIN 0.4 MG CAP.SR.24H PO SCH (22:11)
[2020-06-30] MEDS: ATORVASTATIN 10 MG TABLET PO SCH (22:11)
[2020-06-30] MEDS: TRAZODONE 50 MG TABLET PO SCH (22:11)
--- NOTE | 2020-06-30 23:00 | NUR ---
RN NOTE PATIENT'S BLOOD SUGAR LEVEL WAS 114 MG/DL. NO SLIDING SCALE COVERAGE NEEDED. OFFERED SNACKS & PO FLUIDS TO THE PT. & TOLERATED WELL. WILL CONTINUE TO MONITOR.
[2020-07-01] MEDS: LORAZEPAM 1 MG TABLET PO PRN (06:25)
[2020-07-01] MEDS: BLOOD SUGAR DIAGNOSTIC 1 EACH STRIP VI SCH ×4 (07:10→21:56)
--- NOTE | 2020-07-01 07:48 | NUR ---
RN NOTE PATIENT'S BLOOD SUGAR IS CHECKED & ENDORSED TO AM RN TO GIVE INSULIN.
[2020-07-01 08:00] VITALS: BP 118/59
[2020-07-01] MEDS: INSULIN REGULAR, HUMAN 100 UNIT/ML 3 ML VIAL SQ PRN ×2 (08:01→12:02)
[2020-07-01] MEDS: risperiDONE 1 MG TABLET PO SCH ×2 (08:43→16:04)
[2020-07-01] MEDS: MULTIVITAMINS,THERAGRAN 1 UDTAB TABLET PO SCH (08:43)
[2020-07-01] MEDS: CLOPIDOGREL BISULFATE 75 MG TABLET PO SCH (08:43)
[2020-07-01] MEDS: POTASSIUM CHLORIDE 20 MEQ TAB.PRT.SR PO SCH (08:44)
[2020-07-01] MEDS: ASPIRIN 81 MG TAB.CHEW PO SCH (08:44)
[2020-07-01] MEDS: DOCUSATE SODIUM 100 MG CAPSULE PO SCH (08:45)
[2020-07-01] MEDS: METOPROLOL TARTRATE 50 MG TABLET PO SCH ×2 (08:45→20:52)
[2020-07-01] MEDS: FUROSEMIDE 20 MG TABLET PO SCH (08:45)
[2020-07-01] MEDS: OXCARBAZEPINE 150 MG TABLET PO SCH ×3 (08:45→16:40)
[2020-07-01] MEDS: glipiZIDE 5 MG TABLET PO SCH (08:46)
[2020-07-01] MEDS: LISINOPRIL (5MG) 5 MG TABLET PO SCH (08:47)
[2020-07-01] MEDS: Z GUARD REMEDY 2 OZ OINT TP SCH (08:49)
[2020-07-01] MEDS: MUPIROCIN OINT 2% 22 GM TUBE NS SCH ×2 (08:49→20:56)
[2020-07-01] MEDS: AMMONIUM LACTATE 227 GM BOTTLE TP SCH ×2 (08:50→16:04)
[2020-07-01] MEDS: ENOXAPARIN SODIUM 40 MG/0.4 ML DISP.SYRIN SQ SCH (08:52)
[2020-07-01] MEDS: CLOTRIMAZOLE 1% 15 GM TUBE TP SCH ×2 (08:53→16:05)
[2020-07-01] MEDS: INSULIN GLARGINE, 100 UNIT/ML CARTRIDGE SQ SCH (09:33)
[2020-07-01 16:00] VITALS: BP 135/64
[2020-07-01 19:42] VITALS: BP 101/55
--- NOTE | 2020-07-01 20:52 | NUR ---
RN NOTE: HELD LOPRESSOR PATIENT'S BP IS 101/55, 64, HELD LOPRESSOR 50 MG PO SCHEDULED. PT. IS ASYMPTOMATIC AT THIS TIME. WILL CONTINUE TO MONITOR.
[2020-07-01] MEDS: ATORVASTATIN 10 MG TABLET PO SCH (21:01)
[2020-07-01] MEDS: TAMSULOSIN 0.4 MG CAP.SR.24H PO SCH (21:01)
[2020-07-01] MEDS: TRAZODONE 50 MG TABLET PO SCH (21:01)
[2020-07-01] MEDS: *INSULIN REGULAR(HUMULIN R)HUM 100 UNIT/ML VIAL SQ PRN (21:57)
[2020-07-02] MEDS: BLOOD SUGAR DIAGNOSTIC 1 EACH STRIP VI SCH ×2 (07:23→11:52)
[2020-07-02] MEDS: INSULIN REGULAR, HUMAN 100 UNIT/ML 3 ML VIAL SQ PRN ×2 (07:29→12:05)
[2020-07-02 08:00] VITALS: BP 143/76
[2020-07-02] MEDS: MUPIROCIN OINT 2% 22 GM TUBE NS SCH (08:00)
[2020-07-02] MEDS: Z GUARD REMEDY 2 OZ OINT TP SCH (08:01)
[2020-07-02] MEDS: INSULIN GLARGINE, 100 UNIT/ML CARTRIDGE SQ SCH (08:02)
[2020-07-02 09:02] VITALS: BP 143/76
[2020-07-02] MEDS: DOCUSATE SODIUM 100 MG CAPSULE PO SCH (09:02)
[2020-07-02] MEDS: OXCARBAZEPINE 150 MG TABLET PO SCH ×2 (09:02→12:48)
[2020-07-02] MEDS: MULTIVITAMINS,THERAGRAN 1 UDTAB TABLET PO SCH (09:02)
[2020-07-02] MEDS: LISINOPRIL (5MG) 5 MG TABLET PO SCH (09:02)
[2020-07-02] MEDS: ASPIRIN 81 MG TAB.CHEW PO SCH (09:02)
[2020-07-02] MEDS: FUROSEMIDE 20 MG TABLET PO SCH (09:02)
[2020-07-02] MEDS: METOPROLOL TARTRATE 50 MG TABLET PO SCH (09:02)
[2020-07-02] MEDS: CLOPIDOGREL BISULFATE 75 MG TABLET PO SCH (09:02)
[2020-07-02] MEDS: risperiDONE 1 MG TABLET PO SCH (09:02)
[2020-07-02] MEDS: ENOXAPARIN SODIUM 40 MG/0.4 ML DISP.SYRIN SQ SCH (09:03)
[2020-07-02] MEDS: POTASSIUM CHLORIDE 20 MEQ TAB.PRT.SR PO SCH (09:08)
[2020-07-02] MEDS: glipiZIDE 5 MG TABLET PO SCH (09:10)
[2020-07-02] MEDS: CLOTRIMAZOLE 1% 15 GM TUBE TP SCH (09:25)
[2020-07-02] MEDS: AMMONIUM LACTATE 227 GM BOTTLE TP SCH (09:26)
[2020-07-02 09:37] LABS: BASOPHILS % (AUTO) 0.7 % (0.0-2.0); EOSINOPHILS % (AUTO) 2.2 % (0.0-6.0); HEMATOCRIT 34 % (39-51); HEMOGLOBIN 11.4 g/dL (13.5-17.5); MEAN CORPUSCULAR HGB CONC 33 g/dl (31.0-36.0); MEAN CORPUSCULAR VOLUME 88 fL (80-96); MONOCYTES # (AUTO) 0.6 /CMM (0.1-1.30); MONOCYTES % (AUTO) 11.9 % (2.0-12.0); NEUTROPHILS # (AUTO) 3.1 /CMM (1.8-8.9); NEUTROPHILS % (AUTO) 64.2 % (43.0-81.0); PLATELET COUNT (AUTO) 213 /CMM (150-450); RED BLOOD CELL COUNT(AUTO) 3.91 MIL/uL (4.5-6.0); WHITE BLOOD COUNT (AUTO) 4.8 K/uL (4.3-11.0)
[2020-07-02 09:51] LABS: CALCIUM, SERUM 8.4 mg/dL (8.5-10.1); POTASSIUM 4.6 mmol/L (3.5-5.1)
--- NOTE | 2020-07-02 10:35 | NUR ---
Family Contact: BABATUNDE called the pts , Ethel ([phone]), and informed her that the pt is going to be discharged today to [facility].
--- NOTE | 2020-07-02 10:43 | NUR ---
Discharge Note: Pt will be discharged to [facility] ([facility]) located at [address] [place] [address]; ([phone]). Pt will be transported via [facility] at 1pm. Pts , Ethel ([phone]), agreed to this placement. Upon discharge, the pt appears to be in a dysphoric mood and presents with a distressed affect. Pt appears to be oriented x2 (time and self). Pt appears to be groomed and appropriately dressed. Pt appears to be ambulatory with an unsteady gait. Pt denies suicidal and homicidal ideation and denied visual and auditory hallucinations. Pt will continue to follow up with pts psychiatrist, Dr. Christensen, located at [address] [facility] [address], [place] [address]; and pts special effects specialist, Dr. An, located at [address] [place] [address], [address] [place] [address]; . Pt was not able to sign the Choice of Vendor form due to pts psychosis. RN and SW cosigned and the form was placed in the chart. The multidisciplinary exit care form was done, printed, signed, and given to the patient.
--- NOTE | 2020-07-02 14:20 | NUR ---
NETWORK PLANNER NOTE: 79 YEAR OLD MALE DISCHARGED TO [facility] IN STABLE CONDITION. COMPLIANT WITH MEDICATIONS, COOPERATIVE WITH TREATMENT PLANS. PATIENT DENIES SI/HI AND INSTRUCTED TO GO TO THE CLOSEST ER IF DEVELOPING SI/HI. BEHAVIOR IMPROVED, PSYCHIATRIC TREATMENT PLANS MET, MEDICAL TREATMENT PLANS DEFERRED FOR CONTINUAL MONITORING. EDUCATED PT ABOUT AFTER CARE PLAN/EXIT CARE AND COPY PROVIDED. RETURNED PERSONAL BELONGINGS TO PATIENT. MEDICATIONS RECONCILED WITH DR. BLEDSOE AND Clarisa BATEMAN DNP. REPORT GIVEN TO JASKARAN RN FOR CONTINUITY OF CARE. PT UNABLE TO SIGNED DISCHARGE PAPERWORK. PT ID BAND REMOVED. WOUND PICTURES TAKEN AND DOCUMENTED IN CHART. PATIENT LEFT THE UNIT AT 1420 VIA GURNEY WITH EMS PRESENT
== END 2020-07-02 15:15 | DRG 885 ==
LOC: ER 22:52 → GPS 06-23 04:15
PROVIDERS: ADMIT Psychiatry & Neurology Psychiatry; ATTEND Registered Nurse
DX: F29 Unspecified psychosis not due to a substance or known physiological condition (principal); N17.9 Acute kidney failure, unspecified; N18.30 Chronic kidney disease, stage 3 unspecified; G92 Toxic encephalopathy; F03.91 Unspecified dementia, unspecified severity, with behavioral disturbance; N39.0 Urinary tract infection, site not specified; I13.0 Hypertensive heart and chronic kidney disease with heart failure and stage 1 through stage 4 chronic kidney disease, or unspecified chronic kidney disease; E87.1 Hypo-osmolality and hyponatremia; E11.22 Type 2 diabetes mellitus with diabetic chronic kidney disease; I50.9 Heart failure, unspecified; D63.8 Anemia in other chronic diseases classified elsewhere; E78.5 Hyperlipidemia, unspecified; E66.01 Morbid (severe) obesity due to excess calories; F32.9 Major depressive disorder, single episode, unspecified; L85.3 Xerosis cutis; Z68.35 Body mass index [BMI] 35.0-35.9, adult; Z73.6 Limitation of activities due to disability; Z22.322 Carrier or suspected carrier of Methicillin resistant Staphylococcus aureus; N13.9 Obstructive and reflux uropathy, unspecified; E11.42 Type 2 diabetes mellitus with diabetic polyneuropathy; L53.8 Other specified erythematous conditions; N40.1 Benign prostatic hyperplasia with lower urinary tract symptoms; Z20.822 Contact with and (suspected) exposure to COVID-19
CPT/HCPCS: 36415; 80048-TC; 80061-TC; 80076-TC; 81001; 82962-TC; 85025-TC; 87081-TC; 87086-TC; 97116-TC; 97530-TC; C9803; G0480; J1650; J1815

== ENCOUNTER 2020-07-05 14:16 | Inpatient (IN) | payer MEDICARE, OTHER ==
[~2020-07-05] VITALS: Ht 167.6 cm; Wt 108.9 kg
[~2020-07-05 14:16] MED LIST: ACET-868 PO; ASPI-1169 PO; ATOR10TA PO; BISA10SU11 RC; CLOP75TA15 PO; DIPH14SO3 TP; DOCU100C36 PO; ENOX40DI SQ; FURO-145 PO; GLIP5TAB13 PO; HYDR-4303 PO; INSU100V3 SQ; INSU100V7 SQ; LISI-768 PO; MAG30ORA PO; MAGN400O6 PO; METO25TA20 PO; MULT-754 PO; NA P133E RC; NYST15PO4 TP; ONDA4TAB5 PO; PETR113O TP; POTA20TA83 PO; PSYL3.4P6 PO; TAMS-12 PO
--- NOTE | 2020-07-05 14:35 | NUR ---
zoie, from snf, +SI, "i want to hang myself" Patient a/ox3, breathing even and unlabored, no sob noted, needs attended.
[2020-07-05 14:53] LABS: BASOPHILS % (AUTO) 0.3 % (0.0-2.0); EOSINOPHILS % (AUTO) 3.7 % (0.0-6.0); HEMATOCRIT 39 % (39-51); HEMOGLOBIN 12.8 g/dL (13.5-17.5); LYMPHOCYTES # (AUTO) 1.7 /CMM (0.8-4.8); LYMPHOCYTES % (AUTO) 26.1 % (20.0-44.0); MEAN CORPUSCULAR HGB CONC 33 g/dl (31.0-36.0); MEAN CORPUSCULAR VOLUME 87 fL (80-96); MONOCYTES # (AUTO) 0.8 /CMM (0.1-1.30); MONOCYTES % (AUTO) 12.3 % (2.0-12.0); NEUTROPHILS # (AUTO) 3.7 /CMM (1.8-8.9); NEUTROPHILS % (AUTO) 57.6 % (43.0-81.0); PLATELET COUNT (AUTO) 273 /CMM (150-450); RED BLOOD CELL COUNT(AUTO) 4.45 MIL/uL (4.5-6.0); WHITE BLOOD COUNT (AUTO) 6.4 K/uL (4.3-11.0)
[2020-07-05] MEDS ORDERED: RISP1TAB7 PO (15:28)
[2020-07-05] MEDS ORDERED: OXCA150T13 PO (15:28)
[2020-07-05] MEDS ORDERED: LORA-259 PO (15:28)
[2020-07-05] MEDS ORDERED: TRAZ-182 PO (15:28)
[2020-07-05] MEDS ORDERED: MUPI22OI7 MC (15:28)
[2020-07-05] MEDS ORDERED: ZOLP5TAB2 PO (15:28)
[2020-07-05 16:00] LABS: ALANINE AMINOTRANSFERASE 22 U/L (12-78); ALBUMIN 3.1 g/dL (3.4-5.0); ALKALINE PHOSPHATASE 120 U/L (46-116); ASPARTATE AMINOTRANSFERASE 12 U/L (15-37); BILIRUBIN,TOTAL 0.2 mg/dL (0.2-1.0); CALCIUM, SERUM 8.5 mg/dL (8.5-10.1); CARBON DIOXIDE 28 mmol/L (21-32); CHLORIDE 96 mmol/L (98-107); CREATININE 1.1 mg/dL (0.6-1.3); GLUCOSE 169 mg/dL (74-106); POTASSIUM 4.3 mmol/L (3.5-5.1); SODIUM SERUM 132 mmol/L (136-145); TOTAL PROTEIN, SERUM 6.7 g/dL (6.4-8.2); UREA NITROGEN, BLOOD 12 mg/dL (7-18)
[2020-07-05 16:02] LABS: ACETAMINOPHEN 0 ug/ml (10-30); ALCOHOL, BLOOD < 10 mg/dL (0-0)
--- NOTE | 2020-07-05 16:30 | NUR ---
CALLED INVASIVE MANAGER LAY FOR EVAL.
[2020-07-05 16:38] LABS: BILIRUBIN,URINE NEGATIVE (NEGATIVE); COLOR,URINE YELLOW (YELLOW); LEUKOCYTE ESTERASE ,URINE NEGATIVE (NEGATIVE); NITRITE, URINE NEGATIVE (NEGATIVE); PROTEIN,URINE NEGATIVE (NEGATIVE); UGLUCOSE NEGATIVE (NEGATIVE); UROBILINOGEN,URINE 0.2 EU/dL (0.2)
--- NOTE | 2020-07-05 16:41 | NUR ---
213.a once cleared per nursing sup.
--- NOTE | 2020-07-05 17:28 | NUR ---
REPORT GIVEN TO STEPHANIE MARTINISENIOR EXECUTIVE COMPENSATION ANALYST NURSE AT [facility].
[2020-07-05] MEDS ORDERED: FUROSEMIDE 20 MG/2 ML VIAL IV ONE (18:00)
[2020-07-05] MEDS ORDERED: FUROSEMIDE 20 MG TABLET ONE (18:04)
[2020-07-05] MEDS ORDERED: FUROSEMIDE 20 MG TABLET PO ONE (18:30)
--- NOTE | 2020-07-05 19:01 | NUR ---
PATIENT TRANSFERRED TO [facility], IN STABLE CONDITION. NO DISTRESS NOTED.
[2020-07-05] MEDS ORDERED: ZOLPIDEM TARTRATE 5 MG TABLET PO PRN ×2 (19:30→21:00)
[2020-07-05] MEDS ORDERED: ACETAMINOPHEN 325 MG TABLET PO PRN ×2 (19:30→23:00)
[2020-07-05] MEDS ORDERED: MAGNESIUM HYDROXIDE 30 ML UDC PO PRN ×2 (19:30→23:00)
[2020-07-05] MEDS ORDERED: MAG HYDROX/AL HYDROX/SIMETH 30 ML UDC PO PRN ×2 (19:30→23:00)
[2020-07-05 19:44] VITALS: BP 113/58
[2020-07-05 19:45] VITALS: BP 113/58
--- NOTE | 2020-07-05 19:50 | NUR ---
GPS RN NOTE: ADMISSION NOTE RECEIVED PATIENT FROM [facility] [place] PATIENT ARRIVED ON THIS UNIT AT 1919 VIA STRETCHER WITH 2 ESCORTS. PATIENT ADMITTED ON A 5150 HOLD FOR DTS AND GD. PER HOLD PATIENT WAS UPSET, TALKING ABOUT HIS WANTING TO PUT HIM AWAY. HE KEPT SPEAKING IN CIRCLES, PT. INFORMED CLINICIAN HE IS UPSET ABOUT HIS 'S DECISION SO HE WANTS TO HANG HIMSELF. PT'S NURSE DAVID FROM [facility] REPORTS, PT. VERBALIZED HE WANTS TO HANG HIMSELF & HAS BEEN AGGRESSIVE TOWARDS STAFF. PT. IS DIAGNOSED WITH SCHIZOAFFECTIVE D/O & MOOD D/O & ON TRAZODONE & RISPERIDONE. UPON FACE TO FACE ASSESSMENT PATIENT IS NOTED TO BEING DEPRESSED, A & O X 1-2, DISHEVELED, DISORGANIZED, COOPERATIVE, NEEDS REDIRECTION. PATIENT IS CURRENTLY LYING IN BED AWAKE, HAS NO S/S OR C/O PAIN. PT. IS DISPLAYING NO S/S OF APPARENT DISTRESS. PT. BREATHING IS UNLABORED WITH EQUAL RISE AND FALL OF THE CHEST. ON ROOM AIR. PT. IS ABLE TO TURN AND REPOSITION IN BED INDEPENDENTLY. PATIENT HAS NO NEEDS AT THIS TIME. PATIENT DENIES SUICIDE IDEATIONS AND HOMICIDAL IDEATIONS AT THIS TIME. AMB/UNSTEADY GAIT. NEEDS STAND BY ASSISTANCE AT ALL TIMES, FALL RISK. PATIENT REFUSED TO SIGNS ANY PAPER WORK. PATIENT ADVISED OF HIS HOLD AND PATIENT RIGHTS BOOKLET GIVEN. PATIENT IS UNDER THE PSYCHIATRIC CARE OF DR. BLEDSOE AND THE MEDICAL CARE OF DR SNOW. PATIENT BELONGINGS WERE INVENTORIED AND CHECKED FOR CONTRABAND. ALL CONTRABAND REMOVED AND STORED IN PATIENT HALLWAY LOCKER. PATIENT ADVANCED DIRECTIVES PREFERENCE, IMMUNIZATIONS QUESTIONER, NECESSARY PAPERWORK COMPLETED. PATIENT ALLOWED SKIN ASSESSMENT. PATIENT ORIENTATED TO ROOM, FLOOR AND STAFF WITH ALL QUESTIONS ANSWERED. PATIENT EDUCATED ON THE USE OF THE CALL CARR. PATIENT BED SIDE RAILS ARE UP X 2 FOR SAFETY. PATIENT BED IS LOCKED, LOW AND I WILL CONTINUE TO MONITOR THIS PATIENT Q 15 MIN WITH THE HELP OF STAFF TO MAINTAIN SAFETY.
[2020-07-05] MEDS ORDERED: BLOOD SUGAR DIAGNOSTIC 1 EACH STRIP IN ONE (20:00)
[2020-07-05] MEDS ORDERED: LORAZEPAM 1 MG TABLET PO PRN (21:00)
--- NOTE | 2020-07-05 22:30 | NUR ---
RN NOTE: SEEN BY PATIENT SEEN BY CALLUM BARKER RECON DONE. WILL CONTINUE TO MONITOR THE PATIENT. PT. IS CALM & COOPERATIVE AT THIS TIME.
[2020-07-05] MEDS ORDERED: DEXTROSE 50%-WATER 50 ML DISP.SYRIN IV PRN (23:00)
[2020-07-05] MEDS: ATORVASTATIN 10 MG TABLET PO SCH (23:06)
[2020-07-05] MEDS: METOPROLOL TARTRATE 25 MG TABLET PO SCH (23:07)
[2020-07-05] MEDS: TAMSULOSIN 0.4 MG CAP.SR.24H PO SCH (23:07)
--- NOTE | 2020-07-05 23:27 | NUR ---
RN NOTE: FAMILY NOTIFIED CALLED LILY GODINEZ, PT'S AT [phone] & INFORMED HER ABOUT PATIENT'S ADMISSION AT [facility] IN ROOM 213-1.
--- NOTE | 2020-07-05 23:30 | NUR ---
RN NOTE: MEDICATION REFUSAL PATIENT IS SLEEPING COMFORTABLY, REFUSED VITALS & MEDICATIONS SCHEDULED AT THIS TIME X3, PT. STATED," I WILL TAKE IT IN THE MORNING, I WANT TO SLEEP." NO ACUTE DISTRESS OR ANY OTHER CHANGE OF CONDITION NOTED. WILL CONTINUE TO MONITOR.
[2020-07-06] MEDS ORDERED: Z GUARD REMEDY 4 OZ OINT TP PRN (04:30)
[2020-07-06] MEDS: BLOOD SUGAR DIAGNOSTIC 1 EACH STRIP IN SCH ×4 (07:23→21:43)
[2020-07-06] MEDS: glipiZIDE 5 MG TABLET PO SCH (07:44)
[2020-07-06 08:00] VITALS: BP 124/65
[2020-07-06] MEDS: POTASSIUM CHLORIDE 20 MEQ TAB.PRT.SR PO SCH (08:15)
[2020-07-06] MEDS: DOCUSATE SODIUM 100 MG CAPSULE PO SCH (08:15)
[2020-07-06] MEDS: FUROSEMIDE 20 MG TABLET PO SCH (08:15)
[2020-07-06] MEDS: ASPIRIN 81 MG TAB.CHEW PO SCH (08:15)
[2020-07-06] MEDS: METOPROLOL TARTRATE 25 MG TABLET PO SCH ×2 (08:15→20:32)
[2020-07-06] MEDS: MULTIVITAMINS,THERAGRAN 1 UDTAB TABLET PO SCH (08:15)
[2020-07-06] MEDS: LISINOPRIL (5MG) 5 MG TABLET PO SCH (08:16)
[2020-07-06] MEDS: Z GUARD REMEDY 2 OZ OINT TP SCH (08:16)
[2020-07-06] MEDS: INSULIN GLARGINE, 100 UNIT/ML CARTRIDGE SQ SCH (08:31)
[2020-07-06] MEDS ORDERED: ENOXAPARIN SODIUM 40 MG/0.4 ML DISP.SYRIN SQ SCH (09:00)
--- NOTE | 2020-07-06 09:00 | NUR ---
RN NOTE- PT ALERT ORIENTED TO PERSON ONLY, CONFUSED THOUGH MAKES NEEDS KNOWN, PT DENIES ALL THOUGH CONFUSION MAKES THIS SUSPECT. MED COMPLIANT, PO INTAKE GOOD. NOTED TO BE ON ASA, PLAVIX AND LOVENOX. NOTIFIED DR CAIN IN CASE RX CHANGE NEEDED. MONITORING FROM BRUISING BLEEDING
--- NOTE | 2020-07-06 09:11 | NUR ---
WOUND CARE CONSULT: PT PRESENTS WITH RT LOWER LEG CRUSTED AREAS AND SOME SCARS/SCABS ON BUTTOCKS, PRESENT ON ADMISSION. RECOMMEND DPM CONSULT. DR BETHEA NOTIFIED OF CONSULT REQUEST. PT IS AMBULATORY AND CONTINENT AT THIS TIME. WILL SEE PRN. AGUILLON IN AGREEMENT WITH PLAN OF CARE.
[2020-07-06] MEDS: CLOPIDOGREL BISULFATE 75 MG TABLET PO SCH (09:36)
--- NOTE | 2020-07-06 10:30 | NUR ---
SNF Contact: BABATUNDE contacted Chiara ([phone]) from [facility] who stated that the pt will not be accepted back. She stated that it was discussed with the MD and the pt will be rerouted.
--- NOTE | 2020-07-06 11:35 | NUR ---
Psychosocial Note: I, Génesis Chirinos MSW, attest to the patients previous psychosocial information dated on 06/26/20. Update On Events leading to Admission and Discharge Plan: Pt has returned to the geriatric psychiatric unit within a few days of his previous discharge date (07/02/20) to [facility]. Pt is a 79 year old male who was admitted to [facility] on 07/05/20 on a 5150 hold as a danger to others and as a gravely disabled adult. Per psychiatric hold, pt presented in the ER with confusion, aggressive behavior, and a suicidal plan. Upon evaluation, pt was upset and was talking about his wanting to put him away. Pt kept speaking in circles and informed the clinician that he was upset about his wifes decision so he wants to hang himself. Pts nurse reports that the pt has been aggressive towards the staff. Upon director social welfare evaluation, pt appears to be alert and oriented x3 (time, place, and self). Pt appears to be in a depressed mood and presents with a distressed affect. Pt states, "I got nothing left. I got nothing left." Pt appears to be hopeless and helpless and states that he wants to go back to living with his . Pt states that he is tired of being placed in facilities. SW expressed that the pt needs care for his dementia. Pt appears to be well groomed and appropriately dressed. Pt was unable to maintain appropriate eye contact and his speech was slow and soft. Pt appears to ambulatory with an unsteady gait. Pts insight and judgment appear to be impaired and the pts impulse control is poor. BABATUNDE spoke to Chiara ([phone]) from [facility] who stated that the pt cannot return at this time. BABATUNDE will seek alternate placement for this pt. BABATUNDE will work with the pt and the MD regarding appropriate discharge planning. SW will form a safe and proper discharge.
--- NOTE | 2020-07-06 11:37 | NUR ---
Family Contact: SW called the pts , Ethel ([phone]), and informed her that the pt cannot be discharged back to [facility] and that the SW will refer him to an alternate facility. SW stated that she will keep her updated on the pts treatment.
[2020-07-06] MEDS: INSULIN REGULAR, HUMAN 100 UNIT/ML 3 ML VIAL SQ PRN ×3 (11:51→21:45)
[2020-07-06] MEDS: OXCARBAZEPINE 150 MG TABLET PO SCH ×2 (12:18→16:13)
[2020-07-06 16:01] VITALS: BP 127/61
[2020-07-06] MEDS: risperiDONE 1 MG TABLET PO SCH (16:13)
[2020-07-06 16:35] LABS: CREATININE 1.1 mg/dL (0.6-1.3); POTASSIUM 4.1 mmol/L (3.5-5.1)
--- NOTE | 2020-07-06 19:40 | NUR ---
[facility] RN OPENING NOTES RECEIVED PATIENT AWAKE IN BED RESTING COMFORTABLY IN NO S/S OR COMPLAINTS OF PAIN AT THIS TIME. PATIENT IS DISPLAYING NO S/S OF APPARENT DISTRESS AT THIS TIME. PATIENT'S BREATHING IS UNLABORED WITH EQUAL RISE AND FALL OF THE CHEST. PATIENT IS ALERT AND ORIENTED X2 ON ROOM AIR WITH SPO2 >95%. PATIENT IS RESPONDING TO INTERNAL STIMULI, CALM AND COOPERATIVE AT THIS TIME. PATIENT DENIES SUICIDE IDEATIONS AND HOMICIDAL IDEATIONS AT THIS TIME. PATIENT ASSISTED WITH TURNING AND REPOSITIONING Q2HR AND PRN FOR COMFORT AND CIRCULATION. PATIENT HAS NO NEEDS AT THIS TIME. PATIENT EDUCATED ON THE USE OF THE CALL LIGHT. PATIENT BED SIDE RAILS UP X 2 FOR SAFETY, BED IS LOCKED AND LOW. WILL CONTINUE TO MONITOR AND ASSESS Q15 MINS WITH THE HELP OF STAFF TO MAINTAIN SAFETY.
[2020-07-06 19:58] VITALS: BP 127/68
[2020-07-06] MEDS: ATORVASTATIN 10 MG TABLET PO SCH (21:17)
[2020-07-06] MEDS: TAMSULOSIN 0.4 MG CAP.SR.24H PO SCH (21:17)
[2020-07-06] MEDS: TRAZODONE 50 MG TABLET PO SCH (21:17)
[2020-07-07 06:40] LABS: BASOPHILS # (AUTO) 0.1 /CMM (0.0-0.2); EOSINOPHILS % (AUTO) 4.6 % (0.0-6.0); HEMATOCRIT 37 % (39-51); HEMOGLOBIN 12.5 g/dL (13.5-17.5); LYMPHOCYTES # (AUTO) 1.6 /CMM (0.8-4.8); LYMPHOCYTES % (AUTO) 27.9 % (20.0-44.0); MEAN CORPUSCULAR HGB CONC 34 g/dl (31.0-36.0); MEAN CORPUSCULAR VOLUME 86 fL (80-96); MONOCYTES # (AUTO) 0.6 /CMM (0.1-1.30); MONOCYTES % (AUTO) 10.2 % (2.0-12.0); NEUTROPHILS # (AUTO) 3.1 /CMM (1.8-8.9); NEUTROPHILS % (AUTO) 56.3 % (43.0-81.0); PLATELET COUNT (AUTO) 272 /CMM (150-450); RED BLOOD CELL COUNT(AUTO) 4.31 MIL/uL (4.5-6.0); WHITE BLOOD COUNT (AUTO) 5.6 K/uL (4.3-11.0)
--- NOTE | 2020-07-07 06:50 | NUR ---
[facility] RN CLOSING NOTES PT IS LAYING ON BED AWAKE, ALERT AND ORIENTED X2. RESPIRATION EVEN AND UNLABORED WITH EQUAL RISE AND FALL OF THE CHEST. ALL CARE NEEDS, TREATMENT AND MEDICATIONS ADMINISTERED ANTICIPATED PER ORDER. NO BEHAVIORAL ISSUES THIS SHIFT BUT WITH EPISODES OF CONFUSION. SAFETY PRECAUTION TAKEN. BED IN LOWEST LOCKED POSITION, SIDE RAILS UP X2, CALL LIGHT WITHIN REACH. WILL ENDORSE TO CONTINUE TO MONITOR [id number] AND Q1HR PER [facility] PROTOCOL FOR SAFETY, MOOD AND BEHAVIOR AND ENDORSE TO AM SHIFT.
[2020-07-07 06:58] LABS: POTASSIUM 4.2 mmol/L (3.5-5.1)
[2020-07-07 06:59] LABS: CALCIUM, SERUM 8.3 mg/dL (8.5-10.1); CREATININE 0.9 mg/dL (0.6-1.3)
[2020-07-07 08:00] VITALS: BP 125/75
[2020-07-07] MEDS: BLOOD SUGAR DIAGNOSTIC 1 EACH STRIP IN SCH ×4 (08:51→21:35)
[2020-07-07] MEDS: INSULIN REGULAR, HUMAN 100 UNIT/ML 3 ML VIAL SQ PRN ×3 (09:01→21:50)
[2020-07-07] MEDS: INSULIN GLARGINE, 100 UNIT/ML CARTRIDGE SQ SCH (09:02)
[2020-07-07] MEDS: ASPIRIN 81 MG TAB.CHEW PO SCH (09:54)
[2020-07-07] MEDS: DOCUSATE SODIUM 100 MG CAPSULE PO SCH (09:54)
[2020-07-07] MEDS: FUROSEMIDE 20 MG TABLET PO SCH (09:54)
[2020-07-07] MEDS: glipiZIDE 5 MG TABLET PO SCH (09:54)
[2020-07-07] MEDS: MULTIVITAMINS,THERAGRAN 1 UDTAB TABLET PO SCH (09:54)
[2020-07-07] MEDS: LISINOPRIL (5MG) 5 MG TABLET PO SCH (09:55)
[2020-07-07] MEDS: OXCARBAZEPINE 150 MG TABLET PO SCH ×3 (09:55→18:03)
[2020-07-07] MEDS: POTASSIUM CHLORIDE 20 MEQ TAB.PRT.SR PO SCH (09:55)
[2020-07-07] MEDS: METOPROLOL TARTRATE 25 MG TABLET PO SCH ×2 (09:56→21:35)
[2020-07-07] MEDS: CLOPIDOGREL BISULFATE 75 MG TABLET PO SCH (09:56)
[2020-07-07] MEDS: Z GUARD REMEDY 2 OZ OINT TP SCH (10:00)
[2020-07-07] MEDS: risperiDONE 1 MG TABLET PO SCH ×2 (10:00→18:06)
[2020-07-07 15:56] VITALS: BP 133/63
--- NOTE | 2020-07-07 18:50 | NUR ---
med compliant,bgl low at dinner time.given juice with sugar.
--- NOTE | 2020-07-07 19:45 | NUR ---
[facility] RN NOTES RECEIVED ON BED SLEEPING,BREATHING NON LABORED,NO S/S OF RESPIRATORY DISTRESS,PER REPORT ,PT WITH UNSTEADY GAIT,FALL PRECAUTION OBSERVED,BED ON LOWEST POSITION AND LOCKED,BED ALARM TRIGGERED.FREQUENTS ROUNDS Q 15 MINUTES OBSERVED.WILL CONTINUE TO MONITOR BEHAVIOR.
[2020-07-07 20:52] VITALS: BP 112/62
[2020-07-07 20:57] VITALS: BP_SYST 112; BP_SYST 114; BP_DIAS 62
[2020-07-07] MEDS: TAMSULOSIN 0.4 MG CAP.SR.24H PO SCH (21:35)
[2020-07-07] MEDS: ATORVASTATIN 10 MG TABLET PO SCH (21:35)
[2020-07-07] MEDS: TRAZODONE 50 MG TABLET PO SCH (21:36)
--- NOTE | 2020-07-08 06:30 | NUR ---
[facility] RN NOTES SLEPT WELL AT NIGHT,MED COMPLIANT,FOLLOW DIRECTION,NO EPISODE OF AGITATION.
[2020-07-08 08:00] VITALS: BP 123/64
[2020-07-08] MEDS ORDERED: MINERAL OIL/PETROLATUM,WHITE 120 GM JAR TP PRN (11:00)
[2020-07-08] MEDS: CLOPIDOGREL BISULFATE 75 MG TABLET PO SCH (12:39)
[2020-07-08] MEDS: ASPIRIN 81 MG TAB.CHEW PO SCH (12:39)
[2020-07-08] MEDS: LISINOPRIL (5MG) 5 MG TABLET PO SCH (12:44)
[2020-07-08] MEDS: OXCARBAZEPINE 150 MG TABLET PO SCH ×3 (12:45→17:47)
[2020-07-08] MEDS: POTASSIUM CHLORIDE 20 MEQ TAB.PRT.SR PO SCH (12:45)
[2020-07-08] MEDS: MULTIVITAMINS,THERAGRAN 1 UDTAB TABLET PO SCH (12:45)
[2020-07-08] MEDS: risperiDONE 1 MG TABLET PO SCH ×2 (12:45→17:47)
[2020-07-08] MEDS: FUROSEMIDE 20 MG TABLET PO SCH (12:45)
[2020-07-08] MEDS: glipiZIDE 5 MG TABLET PO SCH (12:45)
[2020-07-08] MEDS: METOPROLOL TARTRATE 25 MG TABLET PO SCH ×2 (12:46→21:00)
[2020-07-08] MEDS: Z GUARD REMEDY 2 OZ OINT TP SCH (12:46)
[2020-07-08] MEDS: DOCUSATE SODIUM 100 MG CAPSULE PO SCH (12:46)
[2020-07-08] MEDS: BLOOD SUGAR DIAGNOSTIC 1 EACH STRIP IN SCH ×4 (12:46→22:10)
[2020-07-08] MEDS: INSULIN GLARGINE, 100 UNIT/ML CARTRIDGE SQ SCH (12:47)
[2020-07-08] MEDS: INSULIN REGULAR, HUMAN 100 UNIT/ML 3 ML VIAL SQ PRN (12:56)
[2020-07-08 16:00] VITALS: BP 116/62
[2020-07-08 20:00] VITALS: BP 105/55
[2020-07-08] MEDS: ATORVASTATIN 10 MG TABLET PO SCH (22:13)
[2020-07-08] MEDS: TAMSULOSIN 0.4 MG CAP.SR.24H PO SCH (22:13)
[2020-07-08] MEDS: TRAZODONE 50 MG TABLET PO SCH (22:15)
[2020-07-09] MEDS: LORAZEPAM 1 MG TABLET PO PRN (06:28)
--- NOTE | 2020-07-09 06:31 | NUR ---
[facility] RN NOTES: PATIENT IS AGITATED, RESTLESS, ANXIOUS, PACING AND YELLING. REFUSING REDIRECTION. ASKING "WHY ARE YOU HOLDING ME HERE". TRIED TO HIT STAFF. ATIVAN 1MG/1TAB GIVEN PO PRN ORDERED AT 0628. WILL CONTINUE TO MONITOR AND ENDORSE TO AM SHIFT.
--- NOTE | 2020-07-09 07:07 | NUR ---
[facility] RN CLOSING NOTES: PATIENT AWAKE, A/O X2. PATIENT SLEPT 8HRS THIS SHIFT. PATIENT ONLY ALLOWED FOR PARTIAL SKIN ASSESSMENT, REFUSED COMPLETING FULL ASSESSMENT. PICTURES PLACED IN PATIENT CHART. NO S/S OF DISTRESS. RESPIRATION EVEN AND UNLABORED WITH EQUAL RISE AND FALL OF THE CHEST ON ROOM AIR. ALL PATIENT CARE NEEDS HAVE BEEN MET ANTICIPATED. BED IN LOWEST POSITION AND LOCKED WITH SIDE RAILS UP X2. WILL CONTINUE TO MONITOR FOR SAFETY, MOOD AND BEHAVIOR AND ENDORSE TO AM SHIFT.
[2020-07-09] MEDS: BLOOD SUGAR DIAGNOSTIC 1 EACH STRIP IN SCH ×4 (07:48→21:22)
[2020-07-09] MEDS: glipiZIDE 5 MG TABLET PO SCH (07:54)
[2020-07-09 08:00] VITALS: BP 112/53
[2020-07-09] MEDS: INSULIN REGULAR, HUMAN 100 UNIT/ML 3 ML VIAL SQ PRN ×2 (08:27→11:54)
[2020-07-09] MEDS: LISINOPRIL (5MG) 5 MG TABLET PO SCH (09:00)
[2020-07-09] MEDS: METOPROLOL TARTRATE 25 MG TABLET PO SCH ×2 (09:00→21:00)
--- NOTE | 2020-07-09 09:00 | NUR ---
RN NOTE- PT HAD AGITATION DURING WRAPPER STITCHER HOURS BUT BY DAY SHIFT WAS CALM DIRECTABLE. MED COMPLIANT PO INTAKE GOOD
[2020-07-09] MEDS: POTASSIUM CHLORIDE 20 MEQ TAB.PRT.SR PO SCH (09:25)
[2020-07-09] MEDS: DOCUSATE SODIUM 100 MG CAPSULE PO SCH (09:26)
[2020-07-09] MEDS: ASPIRIN 81 MG TAB.CHEW PO SCH (09:26)
[2020-07-09] MEDS: MULTIVITAMINS,THERAGRAN 1 UDTAB TABLET PO SCH (09:26)
[2020-07-09] MEDS: FUROSEMIDE 20 MG TABLET PO SCH (09:26)
[2020-07-09] MEDS: CLOPIDOGREL BISULFATE 75 MG TABLET PO SCH (09:26)
[2020-07-09] MEDS: risperiDONE 1 MG TABLET PO SCH ×2 (09:26→16:16)
[2020-07-09] MEDS: Z GUARD REMEDY 2 OZ OINT TP SCH (09:27)
[2020-07-09] MEDS: INSULIN GLARGINE, 100 UNIT/ML CARTRIDGE SQ SCH (09:30)
[2020-07-09] MEDS: OXCARBAZEPINE 150 MG TABLET PO SCH ×2 (10:52→21:13)
[2020-07-09 16:00] VITALS: BP 134/65
[2020-07-09 20:00] VITALS: BP 96/52
[2020-07-09] MEDS: TRAZODONE 50 MG TABLET PO SCH (21:12)
[2020-07-09] MEDS: TAMSULOSIN 0.4 MG CAP.SR.24H PO SCH (21:13)
--- NOTE | 2020-07-09 21:13 | NUR ---
[facility]-RN NOTE: HELD LOPRESSOR 50MG D/T BP IS LOW 96/52, P65. WILL CONTINUE TO MONITOR.
[2020-07-09] MEDS: ATORVASTATIN 10 MG TABLET PO SCH (21:15)
[2020-07-10] MEDS: BLOOD SUGAR DIAGNOSTIC 1 EACH STRIP IN SCH ×4 (07:41→21:39)
[2020-07-10] MEDS: glipiZIDE 5 MG TABLET PO SCH (07:45)
[2020-07-10] MEDS: INSULIN REGULAR, HUMAN 100 UNIT/ML 3 ML VIAL SQ PRN (07:46)
[2020-07-10 08:00] VITALS: BP 118/55
[2020-07-10] MEDS: ASPIRIN 81 MG TAB.CHEW PO SCH (08:47)
[2020-07-10] MEDS: CLOPIDOGREL BISULFATE 75 MG TABLET PO SCH (08:47)
[2020-07-10] MEDS: POTASSIUM CHLORIDE 20 MEQ TAB.PRT.SR PO SCH (08:48)
[2020-07-10] MEDS: FUROSEMIDE 20 MG TABLET PO SCH (08:48)
[2020-07-10] MEDS: METOPROLOL TARTRATE 25 MG TABLET PO SCH ×2 (08:48→21:14)
[2020-07-10] MEDS: MULTIVITAMINS,THERAGRAN 1 UDTAB TABLET PO SCH (08:48)
[2020-07-10] MEDS: LISINOPRIL (5MG) 5 MG TABLET PO SCH (08:48)
[2020-07-10] MEDS: DOCUSATE SODIUM 100 MG CAPSULE PO SCH (08:48)
[2020-07-10] MEDS: risperiDONE 1 MG TABLET PO SCH ×2 (08:48→16:32)
[2020-07-10] MEDS: OXCARBAZEPINE 150 MG TABLET PO SCH ×2 (08:51→21:14)
[2020-07-10] MEDS: INSULIN GLARGINE, 100 UNIT/ML CARTRIDGE SQ SCH (08:53)
[2020-07-10] MEDS: Z GUARD REMEDY 2 OZ OINT TP SCH (08:56)
--- NOTE | 2020-07-10 09:00 | NUR ---
RN NOTE- PT CALM QUIET MED COMPLIANT DIRECTABLE ISOLATIVE W BLUNTED AFFECT DENIES SI HI AH VH
--- NOTE | 2020-07-10 13:55 | NUR ---
SNF Referral: BABATUNDE faxed a referral to [facility] with attn to Lorne to the fax number: [phone].
--- NOTE | 2020-07-10 13:58 | NUR ---
SNF Referral: BABATUNDE faxed a referral to [facility] with attn to Chiara to the fax number: [phone].
[2020-07-10 16:00] VITALS: BP 123/61
--- NOTE | 2020-07-10 17:04 | NUR ---
RN NOTE- ACCU CHECK. BS - 65 . ASYMPTOMATIC. GAVE ONE CONTAINER APPLE JUICE
[2020-07-10 20:49] VITALS: BP 127/64
[2020-07-10] MEDS: TAMSULOSIN 0.4 MG CAP.SR.24H PO SCH (21:14)
[2020-07-10] MEDS: ATORVASTATIN 10 MG TABLET PO SCH (21:15)
[2020-07-10] MEDS: TRAZODONE 50 MG TABLET PO SCH (21:15)
[2020-07-11] MEDS: LORAZEPAM 1 MG TABLET PO PRN (03:09)
--- NOTE | 2020-07-11 03:09 | NUR ---
[facility]-RN NOTE: ANXIETY PATIENT WOKE UP AND BECAME AGITATED AND VERBALLY ABUSIVE TOWARDS STAFF. PRN ATIVAN 1MG PO GIVEN ORDERED. WILL CONTINUE TO MONITOR FOR PATIENT'S SAFETY.
--- NOTE | 2020-07-11 07:30 | NUR ---
PT RECEIVED RESTING COMFORTABLY IN BED. NO S/S OR C/O PAIN OR DISTRESS NOTED. SIDE RAILS UP X2, WILL CONTINUE PLAN OF CARE.
[2020-07-11 08:00] VITALS: BP 118/58
[2020-07-11] MEDS: BLOOD SUGAR DIAGNOSTIC 1 EACH STRIP IN SCH ×4 (08:00→21:47)
[2020-07-11] MEDS: METOPROLOL TARTRATE 25 MG TABLET PO SCH ×2 (09:34→21:00)
[2020-07-11] MEDS: MULTIVITAMINS,THERAGRAN 1 UDTAB TABLET PO SCH (09:35)
[2020-07-11] MEDS: DOCUSATE SODIUM 100 MG CAPSULE PO SCH (09:35)
[2020-07-11] MEDS: ASPIRIN 81 MG TAB.CHEW PO SCH (09:35)
[2020-07-11] MEDS: POTASSIUM CHLORIDE 20 MEQ TAB.PRT.SR PO SCH (09:35)
[2020-07-11] MEDS: FUROSEMIDE 20 MG TABLET PO SCH (09:36)
[2020-07-11] MEDS: glipiZIDE 5 MG TABLET PO SCH (09:36)
[2020-07-11] MEDS: CLOPIDOGREL BISULFATE 75 MG TABLET PO SCH (09:36)
[2020-07-11] MEDS: LISINOPRIL (5MG) 5 MG TABLET PO SCH (09:36)
[2020-07-11] MEDS: OXCARBAZEPINE 150 MG TABLET PO SCH ×2 (09:36→21:17)
[2020-07-11] MEDS: risperiDONE 1 MG TABLET PO SCH ×2 (09:36→17:24)
[2020-07-11] MEDS: INSULIN GLARGINE, 100 UNIT/ML CARTRIDGE SQ SCH (09:39)
--- NOTE | 2020-07-11 09:46 | NUR ---
SNF Contact: BABATUNDE faxed a psych clearance to [facility] with attn to Rachel to the fax number: [phone].
[2020-07-11] MEDS: Z GUARD REMEDY 2 OZ OINT TP SCH (09:47)
--- NOTE | 2020-07-11 09:52 | NUR ---
Probable Cause Hearing: Pts [id number] hold was upheld for grave disability.
--- NOTE | 2020-07-11 14:18 | NUR ---
Family Contact: BABATUNDE called the pts , Ethel ([phone]), and informed her that the pt is going to be discharged to [facility] the next day. She approved the placement as she cannot have the pt home at this time.
[2020-07-11 16:00] VITALS: BP 97/58
--- NOTE | 2020-07-11 18:42 | NUR ---
CHANGE OF SHIFT REPORT PT RESTING COMFORTABLY IN BED. NO S/S OR C/O PAIN OR DISTRESS NOTED. SIDE RAILS UP X2, PT KEPT CLEAN, DRY, AND COMFORTABLE. NO SIGNIFICANT CHANGE SINCE PREVIOUS SHIFT.
[2020-07-11 20:28] VITALS: BP 100/52
[2020-07-11] MEDS: ATORVASTATIN 10 MG TABLET PO SCH (21:17)
[2020-07-11] MEDS: TRAZODONE 50 MG TABLET PO SCH (21:17)
[2020-07-11] MEDS: TAMSULOSIN 0.4 MG CAP.SR.24H PO SCH (21:17)
--- NOTE | 2020-07-11 21:17 | NUR ---
[facility]-RN NOTE: HELD LOPRESSOR 50MG PO D/T LOW BP 100/52, P62. WILL CONTINUE TO MONITOR.
[2020-07-12 08:00] VITALS: BP 140/64
[2020-07-12] MEDS: BLOOD SUGAR DIAGNOSTIC 1 EACH STRIP IN SCH ×2 (08:00→12:03)
[2020-07-12] MEDS: OXCARBAZEPINE 150 MG TABLET PO SCH (08:18)
[2020-07-12] MEDS: glipiZIDE 5 MG TABLET PO SCH (08:18)
[2020-07-12] MEDS: MULTIVITAMINS,THERAGRAN 1 UDTAB TABLET PO SCH (08:18)
[2020-07-12] MEDS: FUROSEMIDE 20 MG TABLET PO SCH (08:18)
[2020-07-12] MEDS: POTASSIUM CHLORIDE 20 MEQ TAB.PRT.SR PO SCH (08:18)
[2020-07-12] MEDS: risperiDONE 1 MG TABLET PO SCH (08:18)
[2020-07-12] MEDS: DOCUSATE SODIUM 100 MG CAPSULE PO SCH (08:18)
[2020-07-12] MEDS: ASPIRIN 81 MG TAB.CHEW PO SCH (08:18)
[2020-07-12 08:19] VITALS: BP 140/64
[2020-07-12] MEDS: CLOPIDOGREL BISULFATE 75 MG TABLET PO SCH (08:19)
[2020-07-12] MEDS: METOPROLOL TARTRATE 25 MG TABLET PO SCH (08:19)
[2020-07-12] MEDS: LISINOPRIL (5MG) 5 MG TABLET PO SCH (08:19)
[2020-07-12] MEDS: INSULIN GLARGINE, 100 UNIT/ML CARTRIDGE SQ SCH (08:22)
[2020-07-12] MEDS: INSULIN REGULAR, HUMAN 100 UNIT/ML 3 ML VIAL SQ PRN ×2 (08:24→12:17)
--- NOTE | 2020-07-12 09:43 | NUR ---
SNF Contact: Rachel ([phone]) from [facility] contacted the SW and stated that they are not able to accept the pt at this time.
--- NOTE | 2020-07-12 09:45 | NUR ---
SNF Contact: Oneal ([phone]) from [facility] [place] stated that the pt was accepted to their facility.
--- NOTE | 2020-07-12 09:46 | NUR ---
Family Contact: SW called the pts , Ethel ([phone]), and informed her that the pt was accepted to [facility] and the pts stated that was good news at that facility is closer to them and they will be able to visit him more. Pts thanked the SW and stated that she will work with the next facility regarding this pt.
[2020-07-12] MEDS: Z GUARD REMEDY 2 OZ OINT TP SCH (09:50)
--- NOTE | 2020-07-12 10:03 | NUR ---
Discharge Note: Pt will be discharged to [facility] ([facility]) located at [address] [place] [address]; ([phone]). Pt will be transported via [facility] at 2pm. Pts , Ethel ([phone]), was informed. Upon discharge, the pt appears to be in dysphoric mood and presents with a distressed affect. Pt appears to be alert and oriented x4 (time, place, self and situation). Pt denies both suicidal and homicidal ideation as well as auditory and visual hallucinations. Pt appears to be ambulatory with a steady gait. Pt appears to be groomed and appropriately dressed. Pt will continue to be under the care of psychiatrist, Dr. Christensen, located at [address], [address] [place] [address]; and fitness manager, Dr. Bowie, located at [address] [place] [address]; . The Choice of vendor form and the multidisciplinary exit care form was done, printed, signed, and given to the patient.
--- NOTE | 2020-07-12 14:40 | NUR ---
RN-DISCHARGE NOTES RECEIVED T.O DISCHARGE ORDER FROM DR. BLEDSOE (PSYCHIATRIST) AND DR. SANDS (GLORY HOLE TENDER) WAS MADE AWARE WITH ORDERS. PATIENT WAS DISCHARGE TO [facility] ([facility]). REPORT WAS GIVEN TO JONATAN NEUMANN. PATIENT DID NOT VERBALIZE SI/HI,DENIES VISUAL/AUDITORY HALLUCINATION AT THE TIME OF DISCHARGE.PATIENT WAS SUPERVISOR LATHING BY AMBULANCE VIA GURNEY WITH TWO STAFF ASSIST. PATIENT LEFT THE UNIT IN STABLE CONDITION A/O X2-3 AMBULATORY STEADY GAIT ALL BELONGINGS WAS GIVEN BACK TO THE PATIENT INCLUDING UPPER AND LOWER DENTURES AND SOME CLOTHES. PER NOTES, ANNY ) WAS MADE OF THE DISCHARGE. MASK WAS GIVEN TO THE PATIENT.
[2020-07-13] MEDS ORDERED: TRAZ-182 PO (15:28)
[2020-07-13] MEDS ORDERED: OXCA300T15 PO (15:28)
[2020-07-13] MEDS ORDERED: RISP1TAB97 PO (15:28)
== END 2020-07-12 14:51 | DRG 885 ==
LOC: ER 14:36 → GPS 18:47
PROVIDERS: ADMIT Psychiatry & Neurology Psychiatry; ATTEND Nurse Practitioner Acute Care
DX: F29 Unspecified psychosis not due to a substance or known physiological condition (principal); N18.9 Chronic kidney disease, unspecified; N17.9 Acute kidney failure, unspecified; F03.91 Unspecified dementia, unspecified severity, with behavioral disturbance; E87.1 Hypo-osmolality and hyponatremia; I50.32 Chronic diastolic (congestive) heart failure; I13.0 Hypertensive heart and chronic kidney disease with heart failure and stage 1 through stage 4 chronic kidney disease, or unspecified chronic kidney disease; G93.40 Encephalopathy, unspecified; F41.9 Anxiety disorder, unspecified; E78.5 Hyperlipidemia, unspecified; E11.22 Type 2 diabetes mellitus with diabetic chronic kidney disease; E11.42 Type 2 diabetes mellitus with diabetic polyneuropathy; E86.1 Hypovolemia; N40.0 Benign prostatic hyperplasia without lower urinary tract symptoms; F25.9 Schizoaffective disorder, unspecified; Z20.822 Contact with and (suspected) exposure to COVID-19; L85.3 Xerosis cutis; F32.9 Major depressive disorder, single episode, unspecified; Z79.84 Long term (current) use of oral hypoglycemic drugs
CPT/HCPCS: 36415; 71045-TC; 80048-TC; 80061-TC; 80076-TC; 82962-TC; 83880; 84484-TC; 85025-TC; 87081-TC; 97116-TC; 97530-TC; C9803; G0480; J1650; J1815

== ENCOUNTER 2020-07-13 12:38 | Inpatient (IN) | payer MEDICARE, OTHER ==
[~2020-07-13] VITALS: Ht 170.2 cm; Wt 90.7 kg
[~2020-07-13 12:38] MED LIST changes: -BISA10SU11 RC; -DIPH14SO3 TP; -HYDR-4303 PO; +LORA-259 PO; -NYST15PO4 TP; -ONDA4TAB5 PO; -PETR113O TP; -PSYL3.4P6 PO; +ZOLP5TAB2 PO
--- NOTE | 2020-07-13 12:45 | NUR ---
CHRISTIAN [facility] professional Unit 315 From [facility] "Agressive Behavior and non-compliant with medication. The patient is in ER bed #11. The patient is alert and oriented x2. Able to communicate needs. Denies pain. In room air and denies SOB. Respiration regular and unlabored. Warm blanket provided for comfort. Will continue to monitor the patient.
[2020-07-13 13:06] LABS: BASOPHILS # (AUTO) 0.1 /CMM (0.0-0.2); BASOPHILS % (AUTO) 0.9 % (0.0-2.0); EOSINOPHILS % (AUTO) 0.6 % (0.0-6.0); HEMATOCRIT 39 % (39-51); HEMOGLOBIN 13.2 g/dL (13.5-17.5); LYMPHOCYTES # (AUTO) 1.4 /CMM (0.8-4.8); LYMPHOCYTES % (AUTO) 21.9 % (20.0-44.0); MEAN CORPUSCULAR HGB CONC 34 g/dl (31.0-36.0); MEAN CORPUSCULAR VOLUME 86 fL (80-96); MONOCYTES # (AUTO) 0.7 /CMM (0.1-1.30); MONOCYTES % (AUTO) 10.7 % (2.0-12.0); NEUTROPHILS # (AUTO) 4.2 /CMM (1.8-8.9); NEUTROPHILS % (AUTO) 65.9 % (43.0-81.0); PLATELET COUNT (AUTO) 270 /CMM (150-450); WHITE BLOOD COUNT (AUTO) 6.4 K/uL (4.3-11.0)
[2020-07-13 13:19] LABS: ALANINE AMINOTRANSFERASE 31 U/L (12-78); ALBUMIN 3.4 g/dL (3.4-5.0); ALCOHOL, BLOOD < 3 mg/dL (0-0); ALKALINE PHOSPHATASE 117 U/L (46-116); ASPARTATE AMINOTRANSFERASE 17 U/L (15-37); BILIRUBIN,DIRECT 0.1 mg/dL (0.0-0.2); BILIRUBIN,TOTAL 0.3 mg/dL (0.2-1.0); CALCIUM, SERUM 8.5 mg/dL (8.5-10.1); CARBON DIOXIDE 26 mmol/L (21-32); CHLORIDE 94 mmol/L (98-107); CREATININE 0.9 mg/dL (0.6-1.3); GLUCOSE 120 mg/dL (74-106); POTASSIUM 4.3 mmol/L (3.5-5.1); SODIUM SERUM 125 mmol/L (136-145); UREA NITROGEN, BLOOD 12 mg/dL (7-18)
[2020-07-13 13:20] LABS: ACETAMINOPHEN < 0 ug/ml (10-30)
--- NOTE | 2020-07-13 13:24 | NUR ---
PAGED ART FOR CRISIS EVAL.
--- NOTE | 2020-07-13 13:34 | NUR ---
CANCELLED ART FOR EVAL.
--- NOTE | 2020-07-13 13:36 | NUR ---
URINE COLLECTED AND COVID SWAB DONE AND SENT TO THE LAB
[2020-07-13 13:47] LABS: BILIRUBIN,URINE Negative (NEGATIVE); COLOR,URINE YELLOW (YELLOW); LEUKOCYTE ESTERASE ,URINE Negative (NEGATIVE); NITRITE, URINE Negative (NEGATIVE); PH,URINE 6.5 (5.0-8.0); PROTEIN,URINE Negative (NEGATIVE); UGLUCOSE Negative (NEGATIVE); UROBILINOGEN,URINE 0.2 EU/dL (0.2)
[2020-07-13] MEDS ORDERED: IV NS 0.9% 500 ML BAG IV ONE (14:00)
--- NOTE | 2020-07-13 14:34 | NUR ---
PAGED ART FOR CRISIS EVAL.
--- NOTE | 2020-07-13 14:46 | NUR ---
THE PATIENT CALM AND COOPERATIVE AT THIS TIME. WATCHING TV. DENIES HAVING ANY DISTRESS. WILL CONTINUE TO MONITOR THE PATIENT.
[2020-07-13] MEDS ORDERED: TRAZ-182 PO (15:28)
[2020-07-13] MEDS ORDERED: OXCA300T15 PO (15:28)
[2020-07-13] MEDS ORDERED: RISP1TAB97 PO (15:28)
--- NOTE | 2020-07-13 17:16 | NUR ---
THE PATIENT IS TRANSFERED TO [facility] PER POLICY AND IN STABLE CONDITION.
[2020-07-13 19:30] VITALS: BP 123/78
[2020-07-13] MEDS ORDERED: ACETAMINOPHEN 325 MG TABLET PO PRN (20:30)
[2020-07-13] MEDS ORDERED: ZOLPIDEM TARTRATE 5 MG TABLET PO PRN (20:30)
[2020-07-13] MEDS ORDERED: MAG HYDROX/AL HYDROX/SIMETH 30 ML UDC PO PRN ×2 (20:30→23:00)
[2020-07-13] MEDS ORDERED: MAGNESIUM HYDROXIDE 30 ML UDC PO PRN ×2 (20:30→23:00)
[2020-07-13] MEDS ORDERED: LORAZEPAM 0.5 MG TABLET PO PRN (20:30)
[2020-07-13] MEDS ORDERED: BLOOD SUGAR DIAGNOSTIC 1 EACH STRIP IN ONE (21:00)
--- NOTE | 2020-07-13 22:30 | NUR ---
ADMISSION NOTES: ADMITTED THIS 79Y/O MALE PATIENT ADMIT FROM [facility] ED/ [facility] , PT. ADMITTED TO GPS ON [address]150 GD HOLD , PER HOLD, PT. AGGRESSIVE BEHAVIOR WITH STAFF , NON COMPLIANT ,UPON FACE TO FACE ASSESSMENT PATIENT IS A&O X ,2 ,ANXIOUS, CONFUSED ,FLAT AFFECT ,DISORGNIZED,GUARDED, DISHEVELLED , UNCOOPERTIVE, DENIES SI /HI AT THIS TIME, PT. IS POOR HISTORIAN, POOR INSIGHT ,POOR JUDGEMENT , PT. REFUSED TO SIGNS ADMISSION CONSENT PAPERS ,DUE TO CONFUSED,ENCOURGED X3 PT. STRONGLY REFUSED, BOTH MD AWARE AND NOTIFIED OF THE ADMISSION, BELONGINGS CONTRABAND WERE DONE ,PT. RIGHTS DISCUSS BY MACHINE OPERATOR TRANSPLANTER , PROVIDE THE PT. WITH HANDBOOK, AND MEDICATIONS GUIDE, ENVIRONMENTAL SAFETY CHECK DONE, ENCOURAGED PT. VERBALIZED ANY FEELING CONCERN TO STAFF, ORIENT TO UNIT POLICY, NO ACUTE DISTRESS NOTED,VITAL SIGNS WNL ,DENIES ANY PAIN AT THIS TIME,WILL CONTINUE TO MONITOR FOR Q15 SAFETY AND BEHAVIOR.
[2020-07-13] MEDS ORDERED: DEXTROSE 50%-WATER 50 ML DISP.SYRIN IV PRN (23:30)
[2020-07-14 06:45] LABS: BASOPHILS # (AUTO) 0.1 /CMM (0.0-0.2); BASOPHILS % (AUTO) 1.1 % (0.0-2.0); EOSINOPHILS % (AUTO) 3.5 % (0.0-6.0); HEMATOCRIT 38 % (39-51); HEMOGLOBIN 12.6 g/dL (13.5-17.5); LYMPHOCYTES # (AUTO) 1.5 /CMM (0.8-4.8); LYMPHOCYTES % (AUTO) 28.4 % (20.0-44.0); MEAN CORPUSCULAR HGB CONC 34 g/dl (31.0-36.0); MEAN CORPUSCULAR VOLUME 86 fL (80-96); MONOCYTES # (AUTO) 0.7 /CMM (0.1-1.30); MONOCYTES % (AUTO) 12.9 % (2.0-12.0); NEUTROPHILS # (AUTO) 2.9 /CMM (1.8-8.9); NEUTROPHILS % (AUTO) 54.1 % (43.0-81.0); PLATELET COUNT (AUTO) 270 /CMM (150-450); RED BLOOD CELL COUNT(AUTO) 4.39 MIL/uL (4.5-6.0); WHITE BLOOD COUNT (AUTO) 5.3 K/uL (4.3-11.0)
[2020-07-14 07:12] LABS: CHOLESTEROL 133 mg/dL (<200); HDL CHOLESTEROL 70 mg/dL (40-60); LDL 55 mg/dL (0-99); TRIGLYCERIDES 61 mg/dL (30-150)
[2020-07-14 07:21] LABS: CALCIUM, SERUM 8.4 mg/dL (8.5-10.1); CARBON DIOXIDE 27 mmol/L (21-32); CHLORIDE 99 mmol/L (98-107); CREATININE 0.9 mg/dL (0.6-1.3); GLUCOSE 110 mg/dL (74-106); POTASSIUM 4.4 mmol/L (3.5-5.1); SODIUM SERUM 134 mmol/L (136-145); UREA NITROGEN, BLOOD 10 mg/dL (7-18)
[2020-07-14] MEDS: glipiZIDE 5 MG TABLET PO SCH (07:30)
[2020-07-14] MEDS: BLOOD SUGAR DIAGNOSTIC 1 EACH STRIP IN SCH ×4 (07:30→21:40)
[2020-07-14 08:00] VITALS: BP 121/61
--- NOTE | 2020-07-14 08:00 | NUR ---
GPS RN NOTE: PT RECEIVED ALERT AWAKE ORIENTED 2-3. ON RA, NO BREATHING DISTRESS NOTED. DENIES PAIN & DISCOMFORT. PT REPEATEDLY ASKING WHEN HE IS GOING HOME. REORIENTATION PROVIDED. SAFETY MEASURES OBSERVED. DENIES SI/HI. SAFETY MEASURES OBSERVED. ENCOURAGE TO CALL FOR ASSISTANCE. CONTINUE TO MONITOR [id number] FOR SAFETY.
[2020-07-14] MEDS: INSULIN GLARGINE, 100 UNIT/ML CARTRIDGE SQ SCH (09:00)
[2020-07-14] MEDS: MULTIVITAMINS,THERAGRAN 1 UDTAB TABLET PO SCH (09:00)
[2020-07-14] MEDS: DOCUSATE SODIUM 100 MG CAPSULE PO SCH (09:00)
[2020-07-14] MEDS: LISINOPRIL (5MG) 5 MG TABLET PO SCH (09:00)
[2020-07-14] MEDS: POTASSIUM CHLORIDE 20 MEQ TAB.PRT.SR PO SCH (09:00)
[2020-07-14] MEDS: ASPIRIN 81 MG TAB.CHEW PO SCH (09:00)
[2020-07-14] MEDS: METOPROLOL TARTRATE 25 MG TABLET PO SCH ×2 (09:00→20:05)
[2020-07-14] MEDS: FUROSEMIDE 20 MG TABLET PO SCH (09:00)
[2020-07-14] MEDS: CLOPIDOGREL BISULFATE 75 MG TABLET PO SCH (09:00)
[2020-07-14] MEDS: Z GUARD REMEDY 2 OZ OINT TP SCH (09:00)
[2020-07-14] MEDS ORDERED: OXCARBAZEPINE 150 MG TABLET PO SCH (09:00)
--- NOTE | 2020-07-14 13:42 | NUR ---
GPS RN NOTE: NON COMPLIANT WITH MEDS PT REFUSED ALL AM & NOON MEDS, ACCU CHECKS & INSULIN. R/B DISCUSSED. OFFERED X 3. PT STILL REFUSING. DR. HDEZ MADE AWARE. CONTINUE TO MONITOR.
[2020-07-14 16:00] VITALS: BP 157/92
[2020-07-14 16:13] VITALS: BP 157/92
[2020-07-14] MEDS: risperiDONE 1 MG TABLET PO SCH (17:00)
[2020-07-14] MEDS: OXCARBAZEPINE 150 MG TABLET PO SCH (17:00)
[2020-07-14 20:12] VITALS: BP 132/60
[2020-07-14] MEDS: ATORVASTATIN 10 MG TABLET PO SCH (21:41)
[2020-07-14] MEDS: TAMSULOSIN 0.4 MG CAP.SR.24H PO SCH (21:41)
[2020-07-14] MEDS: TRAZODONE 50 MG TABLET PO SCH (21:41)
[2020-07-14] MEDS: INSULIN REGULAR, HUMAN 100 UNIT/ML 3 ML VIAL SQ PRN (21:44)
[2020-07-15] MEDS: Z GUARD REMEDY 2 OZ OINT TP PRN ×2 (04:30→22:00)
[2020-07-15] MEDS: BLOOD SUGAR DIAGNOSTIC 1 EACH STRIP IN SCH ×4 (07:30→21:58)
[2020-07-15 08:00] VITALS: BP 151/67
[2020-07-15] MEDS: glipiZIDE 5 MG TABLET PO SCH (08:17)
[2020-07-15] MEDS: FUROSEMIDE 20 MG TABLET PO SCH (08:57)
[2020-07-15] MEDS: POTASSIUM CHLORIDE 20 MEQ TAB.PRT.SR PO SCH (08:57)
[2020-07-15] MEDS: METOPROLOL TARTRATE 25 MG TABLET PO SCH ×2 (08:57→21:08)
[2020-07-15] MEDS: OXCARBAZEPINE 150 MG TABLET PO SCH ×2 (08:57→16:35)
[2020-07-15] MEDS: risperiDONE 1 MG TABLET PO SCH ×2 (08:58→16:35)
[2020-07-15] MEDS: LISINOPRIL (5MG) 5 MG TABLET PO SCH (08:58)
[2020-07-15] MEDS: ASPIRIN 81 MG TAB.CHEW PO SCH (08:59)
[2020-07-15] MEDS: MULTIVITAMINS,THERAGRAN 1 UDTAB TABLET PO SCH (08:59)
[2020-07-15] MEDS: CLOPIDOGREL BISULFATE 75 MG TABLET PO SCH (08:59)
[2020-07-15] MEDS: DOCUSATE SODIUM 100 MG CAPSULE PO SCH (09:00)
[2020-07-15] MEDS: Z GUARD REMEDY 2 OZ OINT TP SCH (09:01)
[2020-07-15] MEDS: INSULIN GLARGINE, 100 UNIT/ML CARTRIDGE SQ SCH (10:44)
[2020-07-15] MEDS: INSULIN REGULAR, HUMAN 100 UNIT/ML 3 ML VIAL SQ PRN ×2 (10:46→22:00)
[2020-07-15 15:56] VITALS: BP 94/59
[2020-07-15 20:53] VITALS: BP 131/60
[2020-07-15] MEDS: TRAZODONE 50 MG TABLET PO SCH (21:42)
[2020-07-15] MEDS: ATORVASTATIN 10 MG TABLET PO SCH (21:42)
[2020-07-15] MEDS: TAMSULOSIN 0.4 MG CAP.SR.24H PO SCH (21:42)
[2020-07-16 08:00] VITALS: BP 123/76
[2020-07-16] MEDS: CLOPIDOGREL BISULFATE 75 MG TABLET PO SCH (08:13)
[2020-07-16] MEDS: DOCUSATE SODIUM 100 MG CAPSULE PO SCH (08:13)
[2020-07-16] MEDS: BLOOD SUGAR DIAGNOSTIC 1 EACH STRIP IN SCH ×4 (08:13→21:23)
[2020-07-16] MEDS: LISINOPRIL (5MG) 5 MG TABLET PO SCH (08:14)
[2020-07-16] MEDS: METOPROLOL TARTRATE 25 MG TABLET PO SCH ×2 (08:14→21:21)
[2020-07-16] MEDS: ASPIRIN 81 MG TAB.CHEW PO SCH (08:15)
[2020-07-16] MEDS: glipiZIDE 5 MG TABLET PO SCH (08:15)
[2020-07-16] MEDS: OXCARBAZEPINE 150 MG TABLET PO SCH ×2 (08:15→16:15)
[2020-07-16] MEDS: FUROSEMIDE 20 MG TABLET PO SCH (08:16)
[2020-07-16] MEDS: risperiDONE 1 MG TABLET PO SCH ×2 (08:16→16:15)
[2020-07-16] MEDS: MULTIVITAMINS,THERAGRAN 1 UDTAB TABLET PO SCH (08:16)
[2020-07-16] MEDS: Z GUARD REMEDY 2 OZ OINT TP SCH (08:17)
[2020-07-16] MEDS: INSULIN GLARGINE, 100 UNIT/ML CARTRIDGE SQ SCH (08:21)
[2020-07-16] MEDS: POTASSIUM CHLORIDE 20 MEQ TAB.PRT.SR PO SCH (08:40)
[2020-07-16] MEDS: INSULIN REGULAR, HUMAN 100 UNIT/ML 3 ML VIAL SQ PRN ×4 (08:55→21:29)
--- NOTE | 2020-07-16 10:33 | NUR ---
WOUND CARE CONSULT: PT PRESENTS WITH INCONTINENCE, SOME REDNESS AND SCRATCHES TO BUTTOCKS, DRY CRUSTED AREAS TO RT LOWER LEG AND LONG TOENAILS, PRESENT ON ADMISSION. RECOMMEND DPM CONSULT. DR BETHEA NOTIFIED. RECOMMENDATIONS MADE FOR SKIN PROTECTION. PT IS AMBULATORY. MD IN AGREEMENT WITH PLAN OF CARE.
--- NOTE | 2020-07-16 14:11 | NUR ---
SNF Contact: BABATUNDE contacted Oneal ([phone]) from [facility] who stated that the pt will not be admitted back due to behavioral problems.
--- NOTE | 2020-07-16 14:12 | NUR ---
Psychosocial Note: I, Génesis Chirinos MSW, attest to the patients previous psychosocial information dated on 06/26/20. Update On Events leading to Admission and Discharge Plan: Pt has returned to the geriatric psychiatric unit within a few days of his previous discharge date (07/12/20) to [facility]. Pt is a 79 year old male who was admitted to [facility] on 07/13/20 on a 5150 hold as a gravely disabled adult. Per psychiatric hold, pt was brought in by ambulance from [facility] due to being aggressive with the staff. Upon face to face contact, pt was oriented to name only. Pt had poor eye contact and was a poor historian. Pt had a flat affect and denied being aggressive. Pt has impaired judgment and poor impulse control. Upon social work specialist evaluation, pt appears to be alert and oriented x3 (time, place, and self). Pt appears to be in a depressed mood and presents with a distressed affect. Pt states, "I got nothing left. I got nothing left." Pt appears to be hopeless and helpless and states that he wants to go back to living with his . Pt states that he is tired of being placed in facilities. SW expressed that the pt needs care for his dementia. Pt appears to be well groomed and appropriately dressed. Pt was unable to maintain appropriate eye contact and his speech was slow and soft. Pt appears to ambulatory with an unsteady gait. Pts insight and judgment appear to be impaired and the pts impulse control is poor. BABATUNDE spoke to Oneal ([phone]) from [facility] who stated that the pt cannot return at this time. BABATUNDE will seek alternate placement for this pt. BABATUNDE will work with the pt and the MD regarding appropriate discharge planning. SW will form a safe and proper discharge.
[2020-07-16] MEDS: AMMONIUM LACTATE 227 GM BOTTLE TP SCH ×2 (14:47→16:27)
[2020-07-16 20:00] VITALS: BP 139/58
[2020-07-16] MEDS: TAMSULOSIN 0.4 MG CAP.SR.24H PO SCH (21:22)
[2020-07-16] MEDS: TRAZODONE 50 MG TABLET PO SCH (21:22)
[2020-07-16] MEDS: ATORVASTATIN 10 MG TABLET PO SCH (21:22)
[2020-07-17 06:49] LABS: CREATININE 0.8 mg/dL (0.6-1.3); POTASSIUM 4.1 mmol/L (3.5-5.1)
[2020-07-17 08:00] VITALS: BP 121/63
[2020-07-17] MEDS: BLOOD SUGAR DIAGNOSTIC 1 EACH STRIP IN SCH ×4 (08:25→21:09)
[2020-07-17] MEDS: INSULIN REGULAR, HUMAN 100 UNIT/ML 3 ML VIAL SQ PRN ×3 (08:27→21:11)
[2020-07-17] MEDS: INSULIN GLARGINE, 100 UNIT/ML CARTRIDGE SQ SCH (08:31)
[2020-07-17] MEDS: AMMONIUM LACTATE 227 GM BOTTLE TP SCH ×2 (08:46→17:24)
[2020-07-17] MEDS: Z GUARD REMEDY 2 OZ OINT TP SCH (08:47)
[2020-07-17] MEDS: ASPIRIN 81 MG TAB.CHEW PO SCH (08:49)
[2020-07-17] MEDS: OXCARBAZEPINE 150 MG TABLET PO SCH ×2 (08:49→17:25)
[2020-07-17] MEDS: DOCUSATE SODIUM 100 MG CAPSULE PO SCH (08:49)
[2020-07-17] MEDS: glipiZIDE 5 MG TABLET PO SCH (08:50)
[2020-07-17] MEDS: POTASSIUM CHLORIDE 20 MEQ TAB.PRT.SR PO SCH (08:50)
[2020-07-17] MEDS: METOPROLOL TARTRATE 25 MG TABLET PO SCH ×2 (08:50→21:16)
[2020-07-17] MEDS: CLOPIDOGREL BISULFATE 75 MG TABLET PO SCH (08:50)
[2020-07-17] MEDS: FUROSEMIDE 20 MG TABLET PO SCH (08:51)
[2020-07-17] MEDS: risperiDONE 1 MG TABLET PO SCH ×2 (08:54→17:25)
[2020-07-17] MEDS: MULTIVITAMINS,THERAGRAN 1 UDTAB TABLET PO SCH (08:54)
[2020-07-17] MEDS: LISINOPRIL (5MG) 5 MG TABLET PO SCH (10:00)
[2020-07-17 16:00] VITALS: BP 129/63
--- NOTE | 2020-07-17 16:35 | NUR ---
Family Contact: SW called pts , Ethel ([phone]), and discussed the pts discharge with her and informed her that [facility] is not able to take the pt back due to his aggression. BABATUNDE stated that she is going to attempt to place the pt once again at an alternate [facility] facility.
--- NOTE | 2020-07-17 18:34 | NUR ---
med compliant and cooperative.
[2020-07-17 20:00] VITALS: BP 143/74
--- NOTE | 2020-07-17 20:00 | NUR ---
GPS OPENING NOTE patient in the room, denies si/hi at this time. awake, denies pain or discomfort this time. patient appears unkept, disorganized. reality orientation done. pt ambulatory with steady gait. q15 min checks will continue to monitor patient for mood, safety and behavior.
[2020-07-17] MEDS: ATORVASTATIN 10 MG TABLET PO SCH (21:16)
[2020-07-17] MEDS: TAMSULOSIN 0.4 MG CAP.SR.24H PO SCH (21:16)
[2020-07-17] MEDS: TRAZODONE 50 MG TABLET PO SCH (21:16)
[2020-07-18 08:00] VITALS: BP 139/67
[2020-07-18] MEDS: BLOOD SUGAR DIAGNOSTIC 1 EACH STRIP IN SCH ×4 (08:10→22:14)
[2020-07-18] MEDS: INSULIN REGULAR, HUMAN 100 UNIT/ML 3 ML VIAL SQ PRN ×3 (08:14→18:23)
[2020-07-18] MEDS: INSULIN GLARGINE, 100 UNIT/ML CARTRIDGE SQ SCH (08:16)
[2020-07-18] MEDS: OXCARBAZEPINE 150 MG TABLET PO SCH ×2 (08:48→17:20)
[2020-07-18] MEDS: risperiDONE 1 MG TABLET PO SCH ×2 (08:48→17:20)
[2020-07-18] MEDS: ASPIRIN 81 MG TAB.CHEW PO SCH (08:49)
[2020-07-18] MEDS: CLOPIDOGREL BISULFATE 75 MG TABLET PO SCH (08:49)
[2020-07-18] MEDS: POTASSIUM CHLORIDE 20 MEQ TAB.PRT.SR PO SCH (08:50)
[2020-07-18] MEDS: LISINOPRIL (5MG) 5 MG TABLET PO SCH (08:50)
[2020-07-18] MEDS: MULTIVITAMINS,THERAGRAN 1 UDTAB TABLET PO SCH (08:54)
[2020-07-18] MEDS: glipiZIDE 5 MG TABLET PO SCH (08:55)
[2020-07-18] MEDS: FUROSEMIDE 20 MG TABLET PO SCH (08:56)
[2020-07-18] MEDS: METOPROLOL TARTRATE 25 MG TABLET PO SCH ×2 (08:56→21:26)
[2020-07-18] MEDS: DOCUSATE SODIUM 100 MG CAPSULE PO SCH (09:08)
[2020-07-18] MEDS: AMMONIUM LACTATE 227 GM BOTTLE TP SCH ×2 (09:09→17:13)
[2020-07-18] MEDS: Z GUARD REMEDY 2 OZ OINT TP SCH (09:09)
--- NOTE | 2020-07-18 15:16 | NUR ---
SNF Referral: BABATUNDE faxed a referral to [facility] with attn to Benedicto to the fax number: [phone].
[2020-07-18 16:00] VITALS: BP 118/63
--- NOTE | 2020-07-18 16:16 | NUR ---
SNF Contact: BABATUNDE faxed additional nursing notes to [facility] with attn to Ciro to the fax number: [phone].
--- NOTE | 2020-07-18 18:45 | NUR ---
covid swab done and taken to lab.
[2020-07-18 21:08] VITALS: BP 131/62
[2020-07-18] MEDS: TAMSULOSIN 0.4 MG CAP.SR.24H PO SCH (21:26)
[2020-07-18] MEDS: ATORVASTATIN 10 MG TABLET PO SCH (21:26)
[2020-07-18] MEDS: TRAZODONE 50 MG TABLET PO SCH (21:26)
--- NOTE | 2020-07-18 22:16 | NUR ---
GPS RN NOTES: 2200 BS 61MG/DL. JUICE AND SNACKS GIVEN. PATIENT A/O X2. NO S/S OF DISTRESS. RESPIRATION EVEN AND UNLABORED WITH EQUAL RISE AND FALL OF THE CHEST, ON ROOM AIR. WILL CONTINUE TO MONITOR AND REASSESS.
--- NOTE | 2020-07-19 06:56 | NUR ---
GPS RN CLOSING NOTES: PATIENT AWAKE, A/O X2. SLEPT 8HRS THIS SHIFT. MED COMPLIANT THIS SHIFT. DIAPER CHANGED. NO S/S OF DISTRESS. RESPIRATION EVEN AND UNLABORED WITH EQUAL RISE AND FALL OF THE CHEST ON ROOM AIR. ALL PATIENT CARE NEEDS HAVE BEEN MET ANTICIPATED. BED IN LOWEST POSITION AND LOCKED WITH SIDE RAILS UP X2. WILL CONTINUE TO MONITOR FOR SAFETY, MOOD AND BEHAVIOR AND ENDORSE TO AM SHIFT
[2020-07-19] MEDS: BLOOD SUGAR DIAGNOSTIC 1 EACH STRIP IN SCH ×4 (07:59→21:48)
[2020-07-19 08:00] VITALS: BP 150/72
[2020-07-19] MEDS: risperiDONE 1 MG TABLET PO SCH ×2 (08:25→16:32)
[2020-07-19] MEDS: POTASSIUM CHLORIDE 20 MEQ TAB.PRT.SR PO SCH (08:25)
[2020-07-19] MEDS: FUROSEMIDE 20 MG TABLET PO SCH (08:26)
[2020-07-19] MEDS: CLOPIDOGREL BISULFATE 75 MG TABLET PO SCH (08:26)
[2020-07-19] MEDS: glipiZIDE 5 MG TABLET PO SCH (08:26)
[2020-07-19] MEDS: LISINOPRIL (5MG) 5 MG TABLET PO SCH (08:26)
[2020-07-19] MEDS: DOCUSATE SODIUM 100 MG CAPSULE PO SCH (08:26)
[2020-07-19] MEDS: ASPIRIN 81 MG TAB.CHEW PO SCH (08:26)
[2020-07-19] MEDS: METOPROLOL TARTRATE 25 MG TABLET PO SCH ×2 (08:27→21:09)
[2020-07-19] MEDS: MULTIVITAMINS,THERAGRAN 1 UDTAB TABLET PO SCH (08:36)
[2020-07-19] MEDS: OXCARBAZEPINE 150 MG TABLET PO SCH ×2 (08:36→16:32)
[2020-07-19] MEDS: INSULIN GLARGINE, 100 UNIT/ML CARTRIDGE SQ SCH (08:58)
--- NOTE | 2020-07-19 08:59 | NUR ---
BS is 109 and refused for Lantus 47 unit SQ. Was instructed on the importance and still refusing and said he is OK coz his Blood sugar is not high.
--- NOTE | 2020-07-19 09:13 | NUR ---
SNF Contact: BABATUNDE contacted [facility], to inquire if facility will be able to accept the pt. Chiara from the facility provided BABATUNDE with contact for medical education coordinator, Rachel, . BABATUNDE contacted Rachel who stated that the pt has been accepted to the facility but stated that they require a psychiatric clearance due to the pts history of aggressive behavior. Rachel instructed BABATUNDE to fax psychiatric clearance to [phone]. BABATUNDE will follow up.
[2020-07-19] MEDS: Z GUARD REMEDY 2 OZ OINT TP SCH (09:25)
--- NOTE | 2020-07-19 09:55 | NUR ---
Dr. Miller in the unit made aware that BS is 109 and refused the Lantus of 47 units SQ.
[2020-07-19] MEDS: AMMONIUM LACTATE 227 GM BOTTLE TP SCH ×2 (10:41→17:12)
[2020-07-19] MEDS: INSULIN REGULAR, HUMAN 100 UNIT/ML 3 ML VIAL SQ PRN ×3 (12:01→21:51)
--- NOTE | 2020-07-19 13:29 | NUR ---
Probable Cause Hearing: Pts [id number] hold was upheld for grave disability.
[2020-07-19 16:00] VITALS: BP 108/47
[2020-07-19 20:07] VITALS: BP 112/63
[2020-07-19] MEDS: TAMSULOSIN 0.4 MG CAP.SR.24H PO SCH (21:48)
[2020-07-19] MEDS: TRAZODONE 50 MG TABLET PO SCH (21:48)
[2020-07-19] MEDS: ATORVASTATIN 10 MG TABLET PO SCH (21:48)
[2020-07-19] MEDS: Z GUARD REMEDY 2 OZ OINT TP PRN (21:52)
[2020-07-20] MEDS: BLOOD SUGAR DIAGNOSTIC 1 EACH STRIP IN SCH ×4 (07:59→22:17)
[2020-07-20 08:00] VITALS: BP 148/68
[2020-07-20] MEDS: INSULIN REGULAR, HUMAN 100 UNIT/ML 3 ML VIAL SQ PRN ×2 (08:05→11:47)
[2020-07-20] MEDS: INSULIN GLARGINE, 100 UNIT/ML CARTRIDGE SQ SCH (08:07)
[2020-07-20] MEDS: glipiZIDE 5 MG TABLET PO SCH (08:15)
[2020-07-20] MEDS: OXCARBAZEPINE 150 MG TABLET PO SCH ×2 (08:42→16:41)
[2020-07-20] MEDS: LISINOPRIL (5MG) 5 MG TABLET PO SCH (08:43)
[2020-07-20] MEDS: risperiDONE 1 MG TABLET PO SCH ×2 (08:43→16:41)
[2020-07-20] MEDS: POTASSIUM CHLORIDE 20 MEQ TAB.PRT.SR PO SCH (08:43)
[2020-07-20] MEDS: FUROSEMIDE 20 MG TABLET PO SCH (08:43)
[2020-07-20] MEDS: ASPIRIN 81 MG TAB.CHEW PO SCH (08:43)
[2020-07-20] MEDS: CLOPIDOGREL BISULFATE 75 MG TABLET PO SCH (08:43)
[2020-07-20] MEDS: DOCUSATE SODIUM 100 MG CAPSULE PO SCH (08:43)
[2020-07-20] MEDS: METOPROLOL TARTRATE 25 MG TABLET PO SCH ×2 (08:47→21:00)
[2020-07-20] MEDS: MULTIVITAMINS,THERAGRAN 1 UDTAB TABLET PO SCH (08:47)
--- NOTE | 2020-07-20 09:00 | NUR ---
RN NOTE PATIENT ALERTED AND ORIENTED PERSON, PLACE, AND PURPOSE. MILD CONFUSION. FLAT AFFECT/ SLOW TO RESPOND VERBALLY. MED COMPLIANT. PO INTAKE GOOD. VISABLE ON UNIT. DENIES SI HI VH.
[2020-07-20] MEDS: Z GUARD REMEDY 2 OZ OINT TP SCH (09:21)
[2020-07-20] MEDS: AMMONIUM LACTATE 227 GM BOTTLE TP SCH ×2 (09:21→16:51)
[2020-07-20 16:00] VITALS: BP 111/55
[2020-07-20 20:06] VITALS: BP 106/55
--- NOTE | 2020-07-20 21:30 | NUR ---
GPS RN NOTES: 2100 METOPROLOL HELD D/T DECREASED BP106/55, P62. WILL CONTINUE TO MONITOR.
[2020-07-20] MEDS: TAMSULOSIN 0.4 MG CAP.SR.24H PO SCH (22:06)
[2020-07-20] MEDS: ATORVASTATIN 10 MG TABLET PO SCH (22:06)
[2020-07-20] MEDS: TRAZODONE 50 MG TABLET PO SCH (22:06)
--- NOTE | 2020-07-20 22:22 | NUR ---
GPS RN NOTES: BS 40MG/DL. PATIENT IS A/O X2. ABLE TO VERBALLY MAKE NEEDS KNOWN. NO S/S OF DISTRESS. RESPIRATION EVEN AND UNLABORED WITH EQUAL RISE AND FALL OF THE CHEST, ON ROOM AIR. PATIENT CURRENTLY DRINKING ORANGE JUICE AND EATING SANDWICH. WILL CONTINUE TO MONITOR AND REPEAT TEST.
--- NOTE | 2020-07-20 22:52 | NUR ---
GPS RN NOTES: ACCU CHEK REPEATED AT 2250. PATIENT BS89MG/DL. WILL CONTINUE TO MONITOR AND OFFER JUICE TOLERATED.
--- NOTE | 2020-07-21 06:51 | NUR ---
GPS RN CLOSING NOTES: PATIENT IS CURRENTLY SLEEPING. SLEPT 7HRS THIS SHIFT. PATIENT WAS MED COMPLIANT WITH NO BEHAVIORAL ISSUES THIS SHIFT. NO S/S OF DISTRESS. RESPIRATION EVEN AND UNLABORED WITH EQUAL RISE AND FALL OF THE CHEST ON ROOM AIR. ALL PATIENT CARE NEEDS HAVE BEEN MET ANTICIPATED. BED IN LOWEST POSITION AND LOCKED WITH SIDE RAILS UP X2. WILL CONTINUE TO MONITOR FOR SAFETY, MOOD AND BEHAVIOR AND ENDORSE TO AM SHIFT
[2020-07-21] MEDS: BLOOD SUGAR DIAGNOSTIC 1 EACH STRIP IN SCH ×2 (07:41→12:06)
[2020-07-21 08:00] VITALS: BP 151/71
[2020-07-21] MEDS: CLOPIDOGREL BISULFATE 75 MG TABLET PO SCH (08:27)
[2020-07-21] MEDS: DOCUSATE SODIUM 100 MG CAPSULE PO SCH (08:27)
[2020-07-21] MEDS: MULTIVITAMINS,THERAGRAN 1 UDTAB TABLET PO SCH (08:27)
[2020-07-21] MEDS: glipiZIDE 5 MG TABLET PO SCH (08:27)
[2020-07-21] MEDS: ASPIRIN 81 MG TAB.CHEW PO SCH (08:27)
[2020-07-21 08:28] VITALS: BP 151/71
[2020-07-21] MEDS: LISINOPRIL (5MG) 5 MG TABLET PO SCH (08:28)
[2020-07-21] MEDS: FUROSEMIDE 20 MG TABLET PO SCH (08:28)
[2020-07-21] MEDS: METOPROLOL TARTRATE 25 MG TABLET PO SCH (08:28)
[2020-07-21] MEDS: POTASSIUM CHLORIDE 20 MEQ TAB.PRT.SR PO SCH (08:28)
[2020-07-21] MEDS: OXCARBAZEPINE 150 MG TABLET PO SCH (08:28)
[2020-07-21] MEDS: risperiDONE 1 MG TABLET PO SCH (08:29)
[2020-07-21] MEDS: Z GUARD REMEDY 2 OZ OINT TP SCH (08:29)
--- NOTE | 2020-07-21 08:32 | NUR ---
Called the facility at [facility] and spoke to the lawn and tree service spray supervisor Pavithra and said they have bed for the patient and will go to room 24C. Dr. Christensen made aware and gave an order to D/C hold and D/C to [facility], to continue same meds including prn and to follow up with psych and medical doctors.
--- NOTE | 2020-07-21 09:00 | NUR ---
RN-CO: DR BLEDSOE ORDER TO DISCHARGE THE PATIENT TODAY TO SNF AND DISCONTINUE HOLD, NOTED AND CARRIED OUT. DR LEWIS LAL MEDICALLY CLEARED THE PT FOR DC.
--- NOTE | 2020-07-21 09:06 | NUR ---
Ethel contacted at [phone] and made aware that pt. is for discharge today at [facility] and agreed. Pt. without distress, denies suicidal and homicidal.
[2020-07-21] MEDS: INSULIN GLARGINE, 100 UNIT/ML CARTRIDGE SQ SCH (09:10)
[2020-07-21] MEDS: AMMONIUM LACTATE 227 GM BOTTLE TP SCH (09:11)
[2020-07-21] MEDS: INSULIN REGULAR, HUMAN 100 UNIT/ML 3 ML VIAL SQ PRN (12:09)
--- NOTE | 2020-07-21 13:50 | NUR ---
Report given with Marielle MARTINI of [facility]
--- NOTE | 2020-07-21 14:13 | NUR ---
Discharge note 79 yo male discharge to [facility] in stable condition. Affect flat, mood reflective. Cooperative and compliant. No suicidal ideation. Medication reviewed and prescription given. Discussed aftercare at [facility]. Behavior improved, non aggressive. Given copy of aftercare plan and belongings returned. Escorted to ambulance by 2 rn traveling from [facility].
--- NOTE | 2020-07-23 10:40 | NUR ---
Discharge Note: Pt will be discharged to [facility] ([facility]) located at [address] [place] [address]; ([phone]). Pt will be in Rm 24B. Pt will be transported via [facility] at 2PM. Pts , Ethel ([phone]), was informed. Upon discharge, the pt appears to be in dysphoric mood and presents with a distressed affect. Pt appears to be alert and oriented x4 (time, place, self and situation). Pt denies both suicidal and homicidal ideation as well as auditory and visual hallucinations. Pt appears to be ambulatory with a steady gait. Pt appears to be groomed and appropriately dressed. Pt will continue to be under the care of psychiatrist, Dr. Corrigan, [place] at [address] [place] [address]; and suede cleaner, Dr. Sukumar Coleman, located at [address] [place], [address]; .
== END 2020-07-21 14:00 | DRG 885 ==
LOC: ER 12:46 → GPS 16:36
PROVIDERS: ADMIT Psychiatry & Neurology Psychiatry
DX: F31.9 Bipolar disorder, unspecified (principal); N18.30 Chronic kidney disease, stage 3 unspecified; E11.65 Type 2 diabetes mellitus with hyperglycemia; E87.1 Hypo-osmolality and hyponatremia; I13.0 Hypertensive heart and chronic kidney disease with heart failure and stage 1 through stage 4 chronic kidney disease, or unspecified chronic kidney disease; G93.40 Encephalopathy, unspecified; F03.91 Unspecified dementia, unspecified severity, with behavioral disturbance; F29 Unspecified psychosis not due to a substance or known physiological condition; D63.8 Anemia in other chronic diseases classified elsewhere; E11.22 Type 2 diabetes mellitus with diabetic chronic kidney disease; N40.0 Benign prostatic hyperplasia without lower urinary tract symptoms; E78.5 Hyperlipidemia, unspecified; I50.9 Heart failure, unspecified; Z20.822 Contact with and (suspected) exposure to COVID-19; Z79.02 Long term (current) use of antithrombotics/antiplatelets; Z79.4 Long term (current) use of insulin; Z79.82 Long term (current) use of aspirin; Z79.899 Other long term (current) drug therapy; Z73.6 Limitation of activities due to disability; E66.01 Morbid (severe) obesity due to excess calories; E11.42 Type 2 diabetes mellitus with diabetic polyneuropathy; Z68.31 Body mass index [BMI] 31.0-31.9, adult; Z91.14 Patient's other noncompliance with medication regimen; L85.3 Xerosis cutis; E86.1 Hypovolemia; B35.1 Tinea unguium; S89.91XA Unspecified injury of right lower leg, initial encounter; X58.XXXA Exposure to other specified factors, initial encounter; Y92.9 Unspecified place or not applicable
CPT/HCPCS: 36415; 80048-TC; 80061-TC; 80076-TC; 82962-TC; 85025-TC; 87081-TC; 97116-TC; 97530-TC; C9803; G0480; J1815; J7040